=== PATIENT | female | born 1965 ===

== ENCOUNTER 2025-09-21 10:30 | Outpatient (AMB) | payer OTHER, SELFPAY ==
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
--- OUTSIDE RECORDS SUMMARY | 2025-09-21 10:33 | XMS_ITS | Encounter Summary ---
Author Organization [facility] Address [address] [place] [id number] Care Team Providers Care Cupola Hoist Operator Name Role Phone Nadia Gomez Primary Care Provider [phone] Nadia Gomez Unavailable Nadia Gomez Unavailable [phone] Reason for Visit * Reason Onset Date Comments Results 07/24/2025 Encounter Details Date Type Department Care Team (Late st Contact Info) Description 07/24/2025 Results Follow-Up [facility] [address] Rheumatology [address] [place] [id number] Aline Green MD [address] [place] [id number] XR Sacroiliac Joints 3+ VW Social History Tobacco Use Types Packs/Day Years Used Date Smoking Tobacco: Never Assessed Comments Unknown Sex and Gender Information Value Date Recorded Sex Assigned at Female 05/25/2025 2:23 PM EDT Legal Sex Female 2:21 PM EDT Gender Identity Female 05/25/2025 2:23 PM EDT Sexual Orientation Not on file documented as of this encounter Miscellaneous Notes * Telephone Encounter - Marko Currie RN - 07/24/2025 2:25 PM EDT Patient updated and expressed understanding. Advised to contact clinic if any questions or concerns arise, expressed understanding. * Telephone Encounter - Marko Currie RN - 07/24/2025 2:23 PM EDT ----- Message from Aline Green MD sent at 07/24/2025 1:18 PM EDT ----- We can let her know she has a lot of osteoarthritis/ wear and tear seen so far on x-rays. However we will await the ultrasound. thanks ----- Message ----- From: She, Rad Results In Sent: 07/24/2025 1:00 PM EDT To: Aline Green MD * Result Encounter Note - Aline Green MD - 07/24/2025 1:18 PM EDT We can let her know she has a lot of osteoarthritis/ wear and tear seen so far on x-rays. However we will await the ultrasound. thanks documented in this encounter Plan of Treatment Upcoming Encounters Date Type Department Care Team (Latest Contact Info) Description 10/30/2025 12:15 PM EST Office Visit [facility] @ [address] [place] [address] [facility] [address] [address] Aline Green MD [address] [place] [address] [address] [place] [address] In Person with Physician documented as of this encounter Visit Diagnoses Not on filedocumented in this encounter Care Teams Cupola Hoist Operator Relationship Specialty Start Date End Date Nadia Gomez [address] [facility] Nitesh NolanJEFF [phone] PCP - General 05/25/25 Nadia Gomez [address] [place] [phone] PCP - Insurance Assigned PCP 07/27/25 Nadia Gomez [address] [facility] [phone] PCP - Insurance Assigned PCP 07/24/25 07/26/25 documented as of this encounter
--- OUTSIDE RECORDS SUMMARY | 2025-09-21 10:33 | XMS_ITS | Continuity of Care Document ---
Author Organization [place] - [employer] [facility], [facility] Address [address] [facility] [place] [facility] [place] [address] Care Team Providers Care Strip Deburrer Name Role Phone NADIA GOMEZ Primary Care Provider [phone] Assessment No assessment recorded. Plan of Treatment Reminders Order Date Submit Date Provider Last Modified By Organization Details Last Modified Time Details Appointments None record ed. Lab HbA1c (hemog lobin A1c), blood 2024 025 itembase [facility], [address] [place] [address], [address], 5 04:39:29 Referral sleep medici ne referr al - Reason for Referr al: Evalua tion and manage ment of DANIELLE Clinic al Summar y: 59 y/o female patifei murdock presen ts with persis tent daytim e sleepi ness despit e sleepi ng up to 12 hours per night. Report s waking with eye crusti ng and nasal pressu re, likely relate d to nasal obstru ction and possib le worsen ing of DANIELLE. Last sleep study was over three years ago, and art murdock report s progre ssive worsen ing of sympto ms. Screen ing Result s: Epwort h Sleepi ness Scale: 19 (sever e daytim e sleepi ness) STOP-B AN (high risk for DANIELLE) Art murdock is wagner tly engage d in weight manage ment and lifest yle change s. Long-t erm goal is eligib ility for a sleep apnea implan t after furthe r weight loss. ENT has recomm ended nasal valve surger y prior to implan t consid eratio n. Reques miles Evalua tion: Repeat sleep study to assess wagner rubio of DANIELLE Review and heaveni brendation of treatm ent option s 2024 [email or web address] [facility], [address] [place] [address], [address], 13:44:42 Procedures None record ed. Surgeries None record ed. Imaging None record ed. Medication Orders Vitami n D3 50 mcg (2,000 unit) capsul e 2024 ezigbuowenzler [facility], [address], [address], [place], [place], [id number], 14:51:05 metron idazol e 0.75 % topica l cream 2024 ezigbuowenzler [facility], [address], [address], [place], [place], [id number], 12:38:50 erythr omycin 5 mg/gra m (0.5 %) eye ointme nt 2024 ezigbuowenzler [facility], [address], [address], [place], [place], [id number], 12:38:50 Patient TargetsNo targets recorded. Patient InstructionsNo instructions recorded. Reason for Referral Sleep Medicine Referral for Difficulty sleeping Evaluation and management of obstructive sleep apnea (DANIELLE) Reason for Referral: Evaluation and management of OSAClinical Summary:59 y/o female patient presents with persistent daytime sleepiness despite sleeping up to 12 hours per night. Reports waking with eye crusting and nasal pressure, likely related to nasal obstruction and possible worsening of DANIELLE. Last sleep study was over three years ago, and patient reports progressive worsening of symptoms.Screening Results:[place]is Sleepiness Scale: 19 (severe daytime sleepiness)STOP-BAN (high risk for DANIELLE)Patient is currently engaged in weight management and lifestyle changes. Long-term goal is eligibility for a sleep apnea implant after further weight loss. ENT has recommended nasal valve surgery prior to implant consideration.Requested Evaluation:Repeat sleep study to assess current severity of OSAReview and optimization of treatment options Referring Physician: Kaelyn Finley, Family Medicine, Encounter Date: 07/11/2025 Results Created Date Observation Date Name Description Value Unit Range Abnormal Flag Note LastModifiedBy Organization Detail LastModifiedTime 07/06/2007/07/2025 LIPID PANEL , STAND ALESSANDRA cholesterol, total 253 mg/dL <200 high Not Available [facility] [address], [address], 07/07/2025 08:14:33 07/06/2007/07/2025 LIPID PANEL , STAND ALESSANDRA HDL cholesterol 56 mg/dL > or = 50 normal Not Available [facility] [address], [place], [address], 07/07/2025 08:14:33 07/06/2007/07/2025 LIPID PANEL , STAND ALESSANDRA triglyceride s 95 mg/dL <150 normal Not Available [facility] [address], [address], 07/07/2025 08:14:33 07/06/2007/07/2025 LIPID PANEL , STAND ALESSANDRA LDL-choleste rol 176 mg/dL _(anthony c) high Refer ence range : <100 Seamus able range <100 mg/dL for prima ry preve ntion ; <70 mg/dL for patie nts with CHD or diabe tic patie nts with > or = 2 CHD risk facto rs. LDL-C is now calcu lated using the Noemy n-Hop kins lamar pace n, which is a valid ated novel joanie english than the Fried belia equat ion in the estim ation of LDL-C . Noemy thomson SS et al. NERY. 2013; 310(1 9): 2061- 2068 (http ://ed ucati on.Qu estDi Quus. com/f aq/FA Q164) Not Available [facility] [address], [place], [address], 07/07/2025 08:14:33 07/06/2007/07/2025 LIPID PANEL , STAND ALESSANDRA chol/HDLC ratio 4.5 (calc ) <5.0 normal Not Available [facility] [address], [place], [address], 07/07/2025 08:14:33 07/06/2007/07/2025 LIPID PANEL , STAND ALESSANDRA non HDL cholesterol 197 mg/dL _(anthony c) <130 high For patie nts with diabe francisca plus 1 major ASCVD risk facto r, treat ing to a non-H DL-C goal of <100 mg/dL (LDL- C of <70 mg/dL ) is consi dered a thera peuti c optio n. Not Available [facility] [address], [place], [address], 07/07/2025 08:14:33 07/06/2007/07/2025 COMPR EHENS DAISY METAB OLIC PANEL glucose 89 mg/dL 65-99 normal Fasti ng refer ence inter ashley Not Available [facility] [address], [place], [address], 07/07/2025 08:14:34 07/06/2007/07/2025 COMPR EHENS DAISY METAB OLIC PANEL urea nitrogen (BUN) 18 mg/dL 7-25 normal Not Available [facility] [address], [place], [address], 07/07/2025 08:14:34 07/06/2007/07/2025 COMPR EHENS DAISY METAB OLIC PANEL creatinine 0.86 mg/dL 0.50-1 .05 normal Not Available [facility] [address], [place], [address], 07/07/2025 08:14:34 07/06/20 25 07/07/2025 COMPR EHENS DAISY METAB OLIC PANEL eGFR 77 mL/mi n/1.7 3m2 > or = 60 normal Not Available [facility] [address], [place], [address], 07/07/2025 08:14:34 07/06/2007/07/2025 COMPR EHENS DAISY METAB OLIC PANEL BUN/creatini ne ratio SEE NOTE: (calc ) 6-22 Not Repor miles: BUN and Creat inine are withi n refer ence range . Not Available [facility] [address], [place], [address], 07/07/2025 08:14:34 07/06/20 25 07/07/2025 COMPR EHENS DAISY METAB OLIC PANEL sodium 139 mmol/ L 135-14 6 normal Not Available [facility] [address], [place], [address], 07/07/2025 08:14:34 07/06/20 25 07/07/2025 COMPR EHENS DAISY METAB OLIC PANEL potassium 4.7 mmol/ L 3.5-5. 3 normal Not Available [facility] [address], [place], [address], 07/07/2025 08:14:34 07/06/2007/07/2025 COMPR EHENS DAISY METAB OLIC PANEL chloride 105 mmol/ L 98-110 normal Not Available [facility] [address], [place], [address], 07/07/2025 08:14:34 07/06/20 25 07/07/2025 COMPR EHENS DAISY METAB OLIC PANEL carbon dioxide 27 mmol/ L 20-32 normal Not Available [facility] [address] [place], [address], 07/07/2025 08:14:34 07/06/20 25 07/07/2025 COMPR EHENS DAISY METAB OLIC PANEL calcium 9.8 mg/dL 8.6-10 .4 normal Not Available [facility] [address], [place], [address], 07/07/2025 08:14:34 07/06/20 25 07/07/2025 COMPR EHENS DAISY METAB OLIC PANEL protein, total 6.2 g/dL 6.1-8. 1 normal Not Available [facility] [address], [place], [address], 07/07/2025 08:14:34 07/06/20 25 07/07/2025 COMPR EHENS DAISY METAB OLIC PANEL albumin 3.8 g/dL 3.6-5. 1 normal Not Available [facility] [address], [place], [address], 07/07/2025 08:14:34 07/06/2007/07/2025 COMPR EHENS DAISY METAB OLIC PANEL globulin 2.4 g/dL_ (calc ) 1.9-3. 7 normal Not Available [facility] [address], [place], [address], 07/07/2025 08:14:34 07/06/2007/07/2025 COMPR EHENS DAISY METAB OLIC PANEL albumin/glob ulin ratio 1.6 (calc ) 1.0-2. 5 normal Not Available [facility] [address], [place], [address], 07/07/2025 08:14:34 07/06/20 25 07/07/2025 COMPR EHENS DAISY METAB OLIC PANEL bilirubin, total 0.3 mg/dL 0.2-1. 2 normal Not Available [facility] [address], [place], [address], 07/07/2025 08:14:34 07/06/2007/07/2025 COMPR EHENS DAISY METAB OLIC PANEL alkaline phosphatase 84 U/L 37-153 normal Not Available [facility] [address], [place], [address], 07/07/2025 08:14:34 07/06/2007/07/2025 COMPR EHENS DAISY METAB OLIC PANEL AST 17 U/L 10-35 normal Not Available [facility] [address], [place], [address], 07/07/2025 08:14:34 07/06/2007/07/2025 COMPR EHENS DAISY METAB OLIC PANEL ALT 21 U/L 6-29 normal Not Available [facility] [address], [place], [address], 07/07/2025 08:14:34 07/06/2007/07/2025 CBC (INCL UDES DIFF/ PLT) white blood cell count 7.4 thous and/u L 3.8-10 .8 normal Not Available [employer] [facility] [address], [place], [address], 07/07/2025 02:32:49 07/06/2007/07/2025 CBC (INCL UDES DIFF/ PLT) red blood cell count 4.57 alexandru on/uL 3.80-5 .10 normal Not Available [facility] [address], [place], [address], 07/07/2025 02:32:49 07/06/20 25 07/07/2025 CBC (INCL UDES DIFF/ PLT) hemoglobin 13.7 g/dL 11.7-1 5.5 normal Not Available [facility] [address], [place], [address], 07/07/2025 02:32:49 07/06/2007/07/2025 CBC (INCL UDES DIFF/ PLT) hematocrit 44.0 % 35.0-4 5.0 normal Not Available [facility] [address], [place], [address], 07/07/2025 02:32:49 07/06/2007/07/2025 CBC (INCL UDES DIFF/ PLT) MCV 96.3 fL 80.0-1 00.0 normal Not Available [facility] [address], [place], [address], 07/07/2025 02:32:49 07/06/2007/07/2025 CBC (INCL UDES DIFF/ PLT) MCH 30.0 pg 27.0-3 3.0 normal Not Available [facility] [address], [place], [address], 07/07/2025 02:32:49 07/06/2007/07/2025 CBC (INCL UDES DIFF/ PLT) MCHC 31.1 g/dL 32.0-3 6.0 low For adult s, a sligh t decre ase in the calcu lated MCHC value (in the range of 30 to 32 g/dL) is most likel y not clini safia signi ficjer t; sandra er, it shoul d be inter prete d with cauti on in corre latio n with other red cell alisson eters and the patie nt's clini anthony condi tion. Not Available [facility] [address], [place], [address], 07/07/2025 02:32:49 07/06/2007/07/2025 CBC (INCL UDES DIFF/ PLT) RDW 12.2 % 11.0-1 5.0 normal Not Available [facility] [address], [place], [address], 07/07/2025 02:32:49 07/06/2007/07/2025 CBC (INCL UDES DIFF/ PLT) platelet count 310 thous and/u L 140-40 0 normal Not Available [facility] [address], [place], [address], 07/07/2025 02:32:49 07/06/2007/07/2025 CBC (INCL UDES DIFF/ PLT) MPV 9.2 fL 7.5-12 .5 normal Not Available [facility] [address], [place], [address], 07/07/2025 02:32:49 07/06/2007/07/2025 CBC (INCL UDES DIFF/ PLT) absolute neutrophils 4618 cells /uL 1500-7 800 normal Not Available [facility] [address], [place], [address], 07/07/2025 02:32:49 07/06/2007/07/2025 CBC (INCL UDES DIFF/ PLT) absolute lymphocytes 1806 cells /uL 850-39 00 normal Not Available [facility] [address], [place], [address], 07/07/2025 02:32:49 07/06/2007/07/2025 CBC (INCL UDES DIFF/ PLT) absolute monocytes 747 cells /uL 200-95 0 normal Not Available [facility] [address], [place], [address], 07/07/2025 02:32:49 07/06/2007/07/2025 CBC (INCL UDES DIFF/ PLT) absolute eosinophils 170 cells /uL 15-500 normal Not Available [facility] [address], [place], [address], 07/07/2025 02:32:49 07/06/2007/07/2025 CBC (INCL UDES DIFF/ PLT) absolute basophils 59 cells /uL 0-200 normal Not Available [facility] [address], [place], [address], 07/07/2025 02:32:49 07/06/2007/07/2025 CBC (INCL UDES DIFF/ PLT) neutrophils 62.4 % normal Not Available [facility] [address], [place], [address], 07/07/2025 02:32:49 07/06/2007/07/2025 CBC (INCL UDES DIFF/ PLT) lymphocytes 24.4 % normal Not Available [facility] [address], [place], [address], 07/07/2025 02:32:49 07/06/2007/07/2025 CBC (INCL UDES DIFF/ PLT) monocytes 10.1 % normal Not Available [facility] [address], [place], [address], 07/07/2025 02:32:49 07/06/2007/07/2025 CBC (INCL UDES DIFF/ PLT) eosinophils 2.3 % normal Not Available [facility] [address], [place], [address], 07/07/2025 02:32:49 07/06/2007/07/2025 CBC (INCL UDES DIFF/ PLT) basophils 0.8 % normal Not Available [facility] [address], [place], [address], 07/07/2025 02:32:49 07/06/20 07/07/2025 VITAM IN D,25- OH,TO DANIEL,I A vitamin D,25-oh,tota l,ia 21 NG/mL 30-100 low Vitam in D Statu s 25-OH Vitam in D: Defic iency : <20 ng/mL Insuf ficie ncy: 20 - 29 ng/mL Optim al: > or = 30 ng/mL For 25-OH Vitam in D testi ng on patie nts on D2-escobedo pplem entat ion and patie nts for whom quant itati on of D2 and D3 fract ions is requi red, the [facility] Assur eD(TM ) 25-OH VIT D, (D2,D 3), LC/MS /MS is recom effie d: order code 07223 (doretha ents >2yrs ). See Note 1 Note 1 For addit ional infor chavo nava refer to http: //[facility] rebecca [email or web address].[email or web address] stDia gnost ics.c om/fa q/FAQ 199 (This link is being provi ded for infor mazin baig/ educsamson bustamante purpo ses only. ) Not Available [facility] [address], [place], [address], 07/07/2025 07:03:41 Result Notes None recorded. Problems Name Problem SNOMED Code Status Onset Date Resolution Date Notes Provider Name and Address Organization Details Recorded Time Menstrua l migraine 51627038 Completed 10/20/2017 Nadia Gomez MD [address] [place] [address], [address], [employer] 8 11:22:45 Pain of multiple joints 95815218 Active osteoart hritis hips, hand , knees , neck, lower back Nadia Gomez MD [address] [place] [address], [address], [employer] 8 11:21:54 Ptosis of eyelid 45412428 Completed 07/17/2015 Nadia Gomez MD [address] [place] [address], [address], [employer] 5 10:14:50 Candidia sis 94117085 Completed 01/24/2024 DION VALDES DNP [address] [place] [address], [address], [facility] [employer] [facility] 4 12:43:20 Inguinal pain 903754423 Completed 07/17/2015 Nadia Gomez MD [address] [place] [address], [address], [facility] [employer] [facility] 5 10:14:50 Sciatica 73738698 Completed 07/17/2015 Nadia Gomez MD [address] [place] [address], [address], [facility] [employer] [facility] 5 10:14:50 Low back pain 459016473 Completed 07/17/2015 Nadia Gomez MD [address] [place] [address], [address], [facility] [employer] [facility] 5 10:14:50 Eczema 76687306 Active Nadai Gomez MD [address] [place] [address], [address], [facility] [employer] [facility] 5 10:37:26 Atrophic vaginiti s 44847734 Active Nadia Gomez MD [address] [place] [address], [address], [facility] [employer] [facility] 5 13:38:40 Vitamin D deficien cy 43330048 Active Nohemi Ferrara LPN [facility], [facility] [employer] [facility] 5 11:18:50 Sciatica 81616032 Active Nadia Gomez MD [address] [place] [address], [address], [facility] [employer] [facility] 6 13:40:49 Acute sinusiti s 66096678 Completed 06/27/2014 Nadia Gomez MD [address] [place] [address], [address], [facility] [employer] [facility] 4 10:27:44 Seborrhe ic dermatit is 77790385 Completed 07/17/2015 Nadia Gomez MD [address] [place] [address], [address], [facility] [employer] 5 10:14:50 Lumbar sprain 317135459 Completed 01/24/2024 DION VALDES DNP [address] [place] [address], [address], [facility] [employer] 4 12:43:32 Psoriasi s 2714817 Completed 11/20/2013 Nadia Gomez MD [address] [place] [address], [address], [facility] [employer] 4 09:33:50 Nasal polyp Completed 07/17/2015 Nadia Gomez MD [address] [place] [address], [address], [facility] [employer] 5 10:14:50 Asthma 014629750 Active Nadia Gomez MD [address] [place] [address], [address], [facility] [employer] 5 13:38:40 Pain in toe 917318841 Completed 06/27/2014 Nadia Gomez MD [address] [place] [address], [address], [facility] [employer] 4 10:28:01 Knee pain Completed 06/27/2014 Nadia Gomez MD [address] [place] [address], [address], [facility] [employer] 4 10:28:01 Premenst rual tension syndrome 31142938 Completed 10/20/2017 Nadia Gomez MD [address] [place] [address], [address], [facility] [employer] 8 11:23:02 Upper respirat ory infectio n 55707453 Completed 06/27/2014 Nadia Gomez MD [address] [place] [address], [address], [facility] [employer] 4 10:27:44 Overweig ht 135575097 Completed 06/27/2014 Nadia Gomez MD [address] [place] [address], [address], [facility] [employer] 4 10:27:44 Obesity 569080668 Active Nadia Gomez MD [address] [place] [address], [address], [facility] [employer] [facility] 5 13:38:40 Sinusiti s 45420059 Completed 01/24/2024 DION VALDES DNP [address] [place] [address], [address], [facility] [employer] 4 12:43:46 Diarrhea 92296685 Completed 07/17/2015 Nadia Gomez MD [address] [place] [address], [address], [facility] [employer] [facility] 5 10:14:50 Family history of ischemic heart disease 896195735 Active 2023 DION VALDES DNP [address] [place] [address], [address], [facility] [employer] 4 19:12:52 Hypertro phy of nasal turbinat es 45557386 Active 2023 DION VALDES DNP [address] [place] [address], [address], [facility] [employer] 4 19:12:56 Anxiety 40455827 Active 2023 DION VALDES DNP [address] [place] [address], [address], [facility] [employer] [facility] 4 19:27:38 Dizzines s 734129854 Active 2023 DION VALDES DNP [address] [place] [address], [address], [facility] [employer] 4 19:28:30 Nausea 393897706 Active 2023 DION VALDES DNP [address] [place] [address], [address], [facility] [employer] 4 19:28:32 Pain of shoulder region 04286782 Active 2023 DION VALDES DNP [address] [place] [address], [address], [facility] [employer] 4 19:28:34 Tight chest 28450382 Active 2023 DION VALDES DNP [address] [place] [address], [address], [facility] [employer] 4 19:28:36 Pain of right shoulder joint 9291346200 0939817 Active 2023 DION VALDES DNP [address] [place] [address], [address], [facility] [employer] 4 00:10:40 Snoring 21044350 Active 2023 DION VADLES DNP [address] [place] [address], [address] [place] [address], [facility] [employer] 4 00:10:51 Problem Notes None recorded. Procedures Surgical History Date Name Laterality Status Provider Name and Address Organization Details Recorded Time 12/02/19 18 Colonoscopy completed Hermelinda Kirkpatrick CMA [facility] [employer] 12/09/2017 13:27:44 09/28/19 18 EGD completed Nohemi Ferrara LPN [facility] [employer] 10/01/2017 11:41:36 Section completed Nadia Gomez MD [address] [place] [address], [address] [place] [address], [facility] [employer] 11/20/2013 09:34:51 Breast Implants completed Nadia Gomez MD [address] [place] [address], [address] [place] [address], [facility] [employer] 11/20/2013 09:56:55 Imaging Results None recorded. Procedure Notes None recorded. Medical Equipment None Reported. Allergies Allergen ID Allergen Name Allergen Category Reaction Reaction Severity Criticality Documentation Date Start Date Code Code System Note Provider Name and Address Organization Details Recorded Time 90004 penicilli n V Not available Not available Not available Not available 01/24/2015 7984 RxNorm This may not be a true aller gy, May be a non-a llerg ic amox rash. pt. state d she was retes miles last fall and she is not aller gic to any antib iotic (2024) Celia Olivares [facility] [employer] [facility] 5 11:11:07 47576 latex environme nt,medica tion Not available Not available Not available 06/21/2018 20239 91 RxNorm rash Graham Mcbride, [address] [place], [address] , [facility] [employer] [facility] 5 08:13:29 Medications Name Sig Start Date Stop Date Status Note LastModified by Organization Details LastModified Time progester one creme 200 mg/gm 1 gm 1-2x daily one gram external ly 1-2 times daily 60 gram, use for last 2 weeks of cycle 2013 active Not Available Not Available Not Avai lable estriol cream 2mg/gm 30 gm Si gm into vagina qpm apply external ly twice a week as directed 2014 active Not Available Not Available Not Avai lable Prescript ion - Clarifica tion active Not Available Not Available Not Available estriol cream 2mg/gm 30 gm Si gm into vagina qpm apply external ly twice a week as directed 2014 active Not Available Not Available Not Avai lable Prescript ion - Prior Authoriza tion Request 07/30 completed Lalitha APPR[employer] Not Available Not Available Not Available sm eye itch relief 0.025 % soln 05/16 completed Not Available Not Available Not Available Hydromet 5 mg-1.5 mg/5 mL oral solution take 5 millilit ers (1 teaspoon ful) by mouth at bedtime for 10 days 06/21 completed Not Available Not Available Not Available celecoxib 200 mg capsule TAKE 1 CAPSULE BY MOUTH DAILY DIRECTED active sometime s is taking 2 capsules as needed Not Available Not Available Not Available cyclobenz aprine 10 mg tablet Take 1 tablet every day by oral route at bedtime for 30 days. 2015 active Not Available Not Available Not Avai lable fluconazo le 100 mg tablet Take 1 tablet every day by oral route for 1 day. 11/27 completed Not Available Not Available Not Available buspirone 5 mg tablet Take 2 tablets twice a day by oral route for 30 days. 01/07 completed Not Available Not Available Not Available Augmentin 875 mg-125 mg tablet Take 1 tablet twice a day by oral route for 10 days. 12/04 completed Not Available Not Available Not Available nystatin 100,000 unit/mL oral suspensio n Take 5 mL 3 times a day by oral route as needed. 02/17 completed Not Available Not Available Not Available Estring 2 mg (7.5 mcg/24 hour) vaginal ring insert 1 ring vaginall y REMOVE AND REPLACE every 3 months 05/16 completed Not Available Not Available Not Available doxycycli ne hyclate 100 mg capsule Take 2 capsules every day by oral route as directed for 1 day. 05/16 completed Not Available Not Available Not Available triamcino lone acetonide 0.5 % topical cream apply to affected area twice a day 05/19 completed Not Available Not Available Not Available azithromy genaro 250 mg tablet take 2 tablets by mouth today then take 1 tablet DAILY FOR 4 DAYS 09/30 completed Not Available Not Available Not Available fluconazo le 150 mg tablet Take 1 tablet every 72 hours by oral route as directed . 06/28 completed Not Available Not Available Not Available valacyclo vir 1 gram tablet as dir for cold sore 05/16 completed oral herpes Not Available Not Available Not Available clarithro mycin 500 mg tablet Take 1 tablet every 12 hours by oral route for 14 days. 11/23 completed Not Available Not Available Not Available Patanol 0.1 % eye drops Instill 1 drop twice a day by ophthalm ic route. 2013 active Not Available Not Available Not Avai lable hydrocodo ne 5 mg-acetam inophen 325 mg tablet 07/30 completed Not Available Not Available Not Available meloxicam 15 mg tablet TK 1 T PO QD WF 02/17 completed Not Available Not Available Not Available naltrexon e 50 mg tablet Take 1 tablet every day by oral route for 30 days. 11/23 completed Not Available Not Available Not Available phenazopy ridine 200 mg tablet Take 1 tablet 3 times a day by oral route. 06/28 completed Not Available Not Available Not Available metronida zole 0.75 % (37.5 mg/5 gram) vaginal gel Insert 1 applicat orful every day by vaginal route for 5 days. 01/07 completed Not Available Not Available Not Available betametha lisset, augmented 0.05 % topical cream Apply by topical route to scalp twice daily active Not Available Not Available No t Available terconazo le 0.8 % vaginal cream INSERT 1 APPLICAT ORFUL VAGINALL Y AT BEDTIME FOR 3 DAYS 02/17 completed Not Available Not Available Not Available sumatript an 50 mg tablet Take 1 tablet every day by oral route as directed for 10 days. active Not Available Not Available No t Available nystatin 500,000 unit tablet Take 1 tablet 3 times a day by oral route for 30 days. 01/07 completed Not Available Not Available Not Available penicilli n V potassium 500 mg tablet active Not Available Not Available Not Available metronida zole 500 mg tablet TAKE 1 TABLET BY MOUTH EVERY 8 HOURS FOR 5 DAYS 04/24 completed Not Available Not Available Not Available ciproflox acin 250 mg tablet active Not Available Not Available No t Available acyclovir 400 mg tablet 07/30 completed Not Available Not Available Not Available ciproflox acin 500 mg tablet 11/23 completed Not Available Not Available Not Available sulfameth oxazole 800 mg-trimet hoprim 160 mg tablet Take 1 tablet twice a day by oral route as directed for 5 days. 06/28 completed Not Available Not Available Not Available aspirin 81 mg tablet,de layed release Take 1 tablet every day by oral route. 10/20 completed Not Available Not Available Not Available doxycycli ne monohydra te 100 mg tablet Take 2 tablets every day by oral route for 1 day. 2013 active Not Available Not Available Not Avai lable acyclovir 800 mg tablet 04/25 completed Not Available Not Available Not Available Serevent Diskus 50 mcg/dose powder for inhalatio n Inhale 1 puff twice a day by inhalati on route. active Not Available Not Available No t Available oxycodone -acetamin ophen 5 mg-325 mg tablet Take 1 tablet 3 times a day by oral route as needed for 7 days. 06/04 completed Not Available Not Available Not Available prednisol one acetate 1 % eye drops,tyrell pension 10/20 completed Not Available Not Available Not Available hydrocort isone valerate 0.2 % topical ointment apply A THIN LAYER TO THE AFFECTED AREA twice a day 10/20 completed Not Available Not Available Not Available econazole nitrate 1 % topical cream apply to affected area twice a day 05/19 completed Not Available Not Available Not Available cephalexi n 500 mg capsule TAKE 1 CAPSULE BY MOUTH THREE TIMES DAILY FOR 10 DAYS 05/01 completed Not Available Not Available Not Available erythromy genaro 5 mg/gram (0.5 %) eye ointment Apply a 1/2 inch line to the lower eyelids (not in the eye) twice daily for 7 days, active Not Available Not Available No t Available acyclovir 5 % topical ointment APPLY TOPICALL Y TO AFFECTED AREA AT FIRST ONSET OF SYMPTOMS UP TO FIVE TIMES A DAY 04/25 completed Not Available Not Available Not Available dexametha sone 4 mg tablet 11/27 completed Not Available Not Available Not Available lidocaine 5 % topical patch 04/25 completed Not Available Not Available Not Available metronida zole 0.75 % topical cream APPLY A THIN LAYER TO THE AFFECTED AREA(S) BY TOPICAL ROUTE 2 TIMES PER DAY IN THE MORNING AND EVENING active Not Available Not Available No t Available omeprazol e 20 mg capsule,d elayed release take 1 capsule by mouth once daily 03/16 completed Not Available Not Available Not Available diclofena c sodium 75 mg tablet,de layed release Take 1 tablet every day by oral route in the morning for 30 days. 07/30 completed Not Available Not Available Not Available monteluka st 10 mg tablet TAKE 1 TABLET BY MOUTH EVERY DAY 06/28 completed Not Available Not Available Not Available clindamyc in 2 % vaginal cream insert 1 applicat orful vaginall y at bedtime for 7 days active Not Available Not Available No t Available mupirocin 2 % topical ointment APPLY TOPICALL Y TO AFFECTED AREA(S) THREE TIMES A DAY FOR 5 DAYS 11/27 completed Not Available Not Available Not Available ergocalci ferol (vitamin D2) 1,250 mcg (50,000 unit) capsule TAKE 1 CAPSULE BY MOUTH EVERY WEEK active Not Available Not Available No t Available Transderm -Scop 1 mg over 3 days transderm al patch active Not Available Not Available Not Available azelastin e 137 mcg (0.1 %) nasal spray 10/20 completed Not Available Not Available Not Available diazepam 10 mg tablet 11/27 completed Not Available Not Available Not Available epinephri ne 0.3 mg/0.3 mL injection , auto-inje ctor 07/30 completed Not Available Not Available Not Available fluticaso ne 100 mcg-salme terol 50 mcg/dose blistr powdr for inhalatio n INHALE 1 DOSE BY MOUTH TWICE A DAY DIRECTED active Not Available Not Available No t Available estradiol 0.01% (0.1 mg/gram) vaginal cream Insert 1 applicat orful 3 times a week by vaginal route as directed for 90 days. active Not Available Not Available No t Available methylpre dnisolone 4 mg tablets in a dose pack take as directed on pack 10/20 completed Not Available Not Available Not Available clobetaso l 0.05 % scalp solution active Provider signed. Not Available Not Available Not Available fluticaso ne propionat e 50 mcg/actua tion nasal spray,tyrell pension instill 2 sprays into each nostril once daily 02/17 completed Not Available Not Available Not Available Diflucan 200 mg tablet Take 1 tablet every day by oral route. 04/24 completed Not Available Not Available Not Available doxycycli ne hyclate 100 mg tablet take 1 tablet by mouth twice a day for 7 days 08/05 completed Not Available Not Available Not Available progester one micronize d 100 mg capsule TAKE 1 CAPSULE BY MOUTH DAILY 2024 active Not Available Not Available Not Avai lable amoxicill in 500 mg-potass ium clavulana te 125 mg tablet Take 1 tablet every 12 hours by oral route for 10 days. 06/28 completed Not Available Not Available Not Available tobramyci n 0.3 %-dexamet hasone 0.1 % eye drops,tyrell pension 04/24 completed Not Available Not Available Not Available calcipotr iene 0.005 % topical ointment Apply by topical route. to scalp twice daily active Not Available Not Available No t Available estradiol 0.0375 mg/24 hr weekly transderm al patch APPLY 1 PATCH TOPICALL Y TO THE SKIN EVERY WEEK 01/29 completed Not Available Not Available Not Available nitrofura ntoin monohydra te/macroc rystals 100 mg capsule TAKE ONE CAPSULE BY MOUTH TWICE A DAY FOR 7 DAYS 10/02 /2025 completed Not Available Not Available Not Available chlorhexi dine gluconate 0.12 % mouthwash 06/28 completed Not Available Not Available Not Available ProAir HFA 90 mcg/actua tion aerosol inhaler inhale 2 puffs by mouth every 4 hours if needed active Not Available Not Available No t Available Xopenex HFA 45 mcg/actua tion aerosol inhaler Inhale 2 puffs every 6 hours by inhalati on route as needed for 30 days. active Not Available Not Available No t Available peg 3350-elec trolytes 236 gram-22.7 4 gram-6.74 gram-5.86 gram solution DIRECTED . 01/07 completed Not Available Not Available Not Available diclofena c 1 % topical gel APPLY 2 GRAMS TO THE AFFECTED AREA(S) BY TOPICAL ROUTE 4 TIMES PER DAY 04/25 completed Not Available Not Available Not Available Eye Itch Relief 0.025 % (0.035 %) drops PLACE 1 DROP INTO AFFECTED EYE(S) TWICE PER DAY NEEDED 05/19 completed Not Available Not Available Not Available estradiol 10 mcg vaginal tablet insert 1 tablet vaginall y two times a week active Not Available Not Available No t Available Zyrtec 10 mg capsule Take 1 capsule every day by oral route. active Not Available Not Available No t Available Suprep Bowel Prep Kit 17.5 gram-3.13 gram-1.6 gram oral solution 06/21 completed Not Available Not Available Not Available Vitamin D3 50 mcg (2,000 unit) capsule Take 1 capsule every day by oral route with meal(s) for 30 days, for Vitamin D deficien cy. 2024 active Not Available Not Available Not Avai lable Xhance 93 mcg/actua tion breath activated aerosol SPRAY 2 SPRAY INTO BOTH NOSTRILS TWICE A DAY active Not Available Not Available No t Available Vitals Date Recorded Body height Heart rate Oxygen saturation Systolic And Diastolic Provider Name and Address Organization Details Last Updated DateTime 07/11/2025 173.36 cm 73 /min 97 % 142/89 mm[Hg] Janet Olivares [place] - [employer] 07/11/2025 11:13:43 Social History Question Answer Notes LastModified by Organizat ion Details LastModified Time Tobacco Smoking Status Never Smoker Hermelinda Kirkpatrick CMA null, [place] - [employer] [facility] 11/14/2012 08:55:37 Do You Have An Advance Directive? No Information not available 11/20/2013 What Is Your Level Of Caffeine Consumption? Moderate 1.5 Cups Of Coffee A Day (2024) [email or web address] Information not available 06/28/2025 How Much Tobacco Do You Chew? None Information not available 11/14/2012 In The 14 Days Before Symptom Onset, Have You Had Close Contact With A Laboratory-confir med COVID-19 While That Case Was Ill? No Information not available 01/07/2023 In The 14 Days Before Symptom Onset, Have You Had Close Contact With A Person Who Is Under Investigation For COVID-19 While That Person Was Ill? No Information not available 01/07/2023 Have You Been To An Area Known To Be High Risk For COVID-19? No Information not available 09/30/2020 What Type Of Diet Are You Following? SPECIFIC Minimal Dairy (2024) [email or web address] Information not available 06/28/2025 Which Illicit Or Recreational Drugs Have You Used? No Information not available 11/14/2012 What Is The Highest Grade Or Level Of School You Have Completed Or The Highest Degree You Have Received? [id number] [email or web address] Information not available 06/28/2025 Hard Of Hearing Or Deaf In One Or Both Ears? No Information not available 11/20/2013 Legally Blind In One Or Both Eyes? No Information no t available 11/20/2013 Foreign Travel Yes Informatio n not available 02/26/2016 Do You Have A Family History Of Mental Health Or Substance Abuse? Yes Information not available 11/20/2013 Language Mauritian Information no t available 02/26/2016 Country Of Origin [facility] Informa tion not available 02/26/2016 Dietary Lactose Free Information not available 02/26/2016 Marital Status [email or web address] Informati on not available 10/20/2018 What Was The Date Of Your Most Recent Tobacco Screening? 07/11/2025 [email or web address] Information not available 07/11/2025 How Many Children Do You Have? 2 Information not available 11/14/2012 Obese No Information no t available 02/26/2016 Overweight Yes Information no t available 02/26/2016 Do You Have Any Pets? Yes Information not available 01/07/2023 What Is Your Relationship Status? Lives With Someone (2024) [email or web address] Information not available 06/28/2025 Do You Use Your Seat Belt Or Car Seat Routinely? Yes Information not available 01/07/2023 Seat Belts Used Routinely Yes Information not available 11/14/2012 Smoke Alarm In Home Yes Information not available 11/14/2012 Do You Have Smoke And Carbon Monoxide Detectors In Your Home? Yes Information not available 01/07/2023 At What Age Did You Start Smoking Tobacco? 0 Information not available 02/26/2016 Are You Passively Exposed To Smoke? No Information no t available 02/26/2016 How Much Tobacco Do You Smoke? No Information not available 02/26/2016 General Stress Level Low [email or web address] Information not available 11/20/2013 Do You Use Sunscreen Routinely? Yes Information not available 11/14/2012 How Many Years Have You Smoked Tobacco? 0 Information not available 02/26/2016 Are You Currently In School? No [email or web address] Information not available 06/28/2025 Sex: Female Functional Status Question Answer Note LastModified by Organizat ion Details LastModified Time Do you use any illicit or recreational drugs? No [email or web address] Information not available 01/24/2024 What is your level of alcohol consumption? Occasional on special occastions (2024) [email or web address] Information not available 06/28/2025 Do you or have you ever used smokeless tobacco? Never used smokeless tobacco Information not available 09/08/2019 Are you currently employed? No [email or web address] Information not available 06/28/2025 What is your occupation? retired [email or web address] Information not available 06/28/2025 Do you or have you ever used e-cigarettes or vape? Never used electronic cigarettes Information not available 09/08/2019 What is your exercise level? Moderate speed walk, hike, lifts weights, stretching (2024) [email or web address] Information not available 06/28/2025 Mental Status None recorded. Family History Relationship Description Onset Age of this Age Resolved Age Notes LastModified by Organization Details LastModified Time Father Hypertensive disorder ankylo sing nusrat jeffries ssalice Not available 02/26/2016 16:55:59 Brother Depressive disorder [email or web address] Not available 2015 16:55:59 Paternal Grandmother Neoplasm of brain ssalice Not available 2015 16:55:59 Medical History Condition Response Asthma, COPD, Breathing or Lung Disorder N Anxiety/Depression N Gout N Cardiac History, Heart [place], [place] N Eye or Vision Problems N Gynecologic problems N Hernia N Thyroid Problems N GI Problems N Developmental or Behavioral Disorders N Blood Pressure High or Low N Skin Problems N Breast Problem N Food or Environmental Allergies Y Diabetes N Bladder,Kidney Problems or Recurrent UTI 's N Muscle, Joint, or Bone Problems N Bleeding Disorder N Arthritis N Cancer (of any kind) N Defects or Inherited Diseases N Prostate issues, ED or Sexual Problem N Insomnia N Cholesterol High or Low N Chronic Pain N Stroke N Headache N Dizziness or Fainting N Seizures or Convulsions N Ear Nose & Throat (ENT) Problems N Neuropathy N Osteoporosis N Liver Disease or Hepatitis N Gynecological History Statement/Question Response Menses Monthly Y Withdrawal Flow Moderate Obstetrics History GPAL:G 2 P 2 0 0 0 Type Value Full Term 2 Total 2 Immunizations Vaccine Type Date Status Note Provider Nam e and Address Organization Details Recorded Time COVID-19, mRNA, LNP-S, PF, 30 mcg/0.3 mL dose 1 completed Tyesha Azar RMA null, [place] [facility] 2023 09:40:11 COVID-19, mRNA, LNP-S, PF, 30 mcg/0.3 mL dose 1 completed Tyeshasheryl Rousseauain, RMA null, [place] [facility] 2023 09:40:11 Td (adult) 5 completed Not Available [facility] 05/16/2020 15:08:16 Influenza, split virus, trivalent, preservative 5 completed Not Available [facility] 10/14/2019 02:38:47 COVID-19, mRNA, LNP-S, PF, 30 mcg/0.3 mL dose 1 completed Tyesha Azar RMA null, [place] [facility] 2023 09:40:11 COVID-19, mRNA, LNP-S, PF, 30 mcg/0.3 mL dose 1 completed PAMELLA [facility], JEFF - [facility] 2023 09:40:11 COVID-19, mRNA, LNP-S, PF, alonzo-sucrose, 30 mcg/0.3 mL 4 completed Not Available [facility] 07/11/2025 10:55:35 zoster recombinant 5 completed Not Available [facility] 07/11/2025 10:55:35 COVID-19, mRNA, LNP-S, bivalent, PF, 30 mcg/0.3 mL dose 2 completed Not Available [facility] 07/11/2025 10:55:35 Influenza, split virus, quadrivalent, PF 3 completed Not Available [facility] 07/11/2025 10:55:35 COVID-19, mRNA, LNP-S, PF, 50 mcg/0.5 mL 3 completed Not Available [facility] 07/11/2025 10:55:35 Past Encounters Encounter ID Performer Location Encounter Start Date Encounter Closed Date Diagnosis/Indication Diagnosis SNOMED-CT Code Diagnosis ICD10 Code Diagnosis IMO Codes Diagnosis Note [id number] ANGELICA GOTTI Eliazar [address] [address] 06/28/2025 08:04:09 06/28/2025 09:24:14 Adult health examination 823660664 Z00.00 Assessment Annual adult physical exam no acute findings.P [facility] health maintenanc e and screening up to date.Obesi ty (BMI 35.3).Hist ory of diverticul osis, stable.Imm unizations partially up to date; pending COVID-19 booster and Shingrix verificati on.PlanEnc ourage continued healthy lifestyle, balanced nutrition, and regular exercise.C ontinue annual follow-up and age-approp riate screenings .CBC, CMP, lipid panel, and vit D ordered.He alth maintenanc e:Eye exam January 2025Dental exam March 2025Pap smear + HPV February 2024 (normal)Ma mmogram scheduled for July5Colono scopy completed 12/30/2021 , several diverticul a, repeat in 5 years (2026)Immu nizations: Declined flu and Tdap today; will receive COVID-19 at [facility]; will verify completion of Shingrix series.Con sandraue routine annual follow-up and age-approp riate screenings . Requires d iphtheria, tetanus and pertussis vaccination 887551007 Z23 594404 As outlined in adult annual examinatio n Requires v aricella vaccination 374566161 Z23 342129 As outlined in adult annual examinatio n Vitamin D deficiency 347 77102 E55.9 17831 Assessment Patient s last Vitamin D level (2022) was low at 34 ng/mL. Currently taking Vitamin D supplement ation.Plan Order repeat Vitamin D level.Adju st Vitamin D supplement ation based on results.Re assess at follow-up to ensure adequacy of therapy. Arthritis 4690637 M19.90 68302 Assessment Right-side d Arthritis and Mobility Issues -- Patient reports chronic right-side d pain and mobility limitation s with constant swelling in the right foot due to a Johnson s cyst behind the knee, requiring periodic aspiration . Reports difficulty lifting the right leg, poor balance, and trouble with dressing and walking. Symptoms have progressiv gordo worsened over the past 10 years, with recent decline. History of back surgery 10 years ago for spinal cysts. Reports tingling and numbness in the right foot after prolonged standing.P lanRefer to physical therapy for balance, gait, and mobility training.C onsider MRI of the lumbar spine to evaluate for recurrent or residual pathology. Follow up to review physical therapy progress and reassess need for further imaging or interventi ons. Influenza vaccination declined [id number] Z28.21 [id number] As outlined in adult annual examinatio n SARS-CoV-2 vaccination declined 0469509506 Z28.21 [id number] As outlined in adult annual examinatio n Synovial p opliteal cyst of right knee 8226044637 M71.21 [id number] Assessment Mild right foot swelling likely secondary to Johnson s cystPlanR ecommend rest, elevation, and compressio n as tolerated. Monitor for pain, redness, or increased swelling.F ollow up if symptoms worsen or persist. Obese class II [id number] 1 53765 E66.812 [id number] Assessment Obesity (BMI 35.3)PlanC ounsel on healthy diet, portion control, and regular physical activity.E ncourage gradual, sustainabl e weight loss. Elevated blood-pressure reading without diagnosis of hypertension 276070200 R03.0 579482 Assessment Patient s blood pressure is slightly elevated at this visit (132/82). No prior history of hypertensi on. Patient reports adherence to lifestyle modificati ons, including diet and exercise.P lanContinu e home and office blood pressure monitoring .Reinforce ongoing lifestyle modificati ons: balanced diet, regular exercise, weight management .Reassess blood pressure at next routine visit or sooner if readings increase. [id number] ANGELICA GOTTI Eliazar [address] [address] 07/11/2025 10:54:25 07/11/2025 12:01:46 Difficulty sleeping 629635873 G47.9 [id number] Assessment Possible Obstructiv e Sleep Apnea (DANIELLE) --- Persistent daytime sleepiness despite adequate hours of sleep and prior DANIELLE diagnosis. Last sleep study >3 years ago; symptoms appear worsened.N yobani obstructio n and weight remain contributi ng factors.Tn reening Results:Ep worth Sleepiness Scale: 19 (severe daytime sleepiness )STOP-BANG : 6 (high risk for DANIELLE)PlanRe jorge for repeat sleep study, lab polysomnog yoni to reassess DANIELLE severity.C ontinue lifestyle modificati ons and weight management program.Re inforce sleep hygiene measures -- regular sleep schedule, avoid caffeine/a lcohol near bedtime.Mo nitor for excessive daytime sleepiness affecting safety (e.g., driving). Diabetes m ellitus screening 180440258 Z13.1 [id number] Rosacea 502675756 L71.9 818 Assessment Rosacea (facial, mild; possible ocular component) --- Central facial erythema triggered by spicy foods and stress; mild periorbita l dryness and crusting.N o pustules or papules noted on exam.PlanO rder metronidaz ole 0.75% cream, apply thin layer to affected facial areas twice daily.Kodak mmend daily use rather than intermitte nt applicatio n for optimal control.Ap ply gentle skin care -- mild cleanser, fragrance- free moisturize r, daily sunscreen. Ocular rosacea 005168994 L71.8 806613 Assessment Ocular Rosacea Chronic inflammato ry condition affecting the eyelids and ocular surface, presenting with dryness, irritation , and intermitte nt redness.Pl anApply warm compresses to eyelids and perform eyelid hygiene (lid scrubs) twice daily.If symptoms persist, start erythromyc in ophthalmic ointment, apply a thin layer to eyelid margins nightly.Re jorge to ophthalmol ogy for evaluation if redness, pain, or vision changes occur.Avoi d known triggers, including spicy foods, alcohol, heat, and emotional stress.Selvin nforce use of artificial tears as needed for dryness and comfort. Vitamin D deficiency [phone] E55.9 95353 Assessment Vitamin D Deficiency (25-hydrox yvitamin D = 21 ng/mL) Mild deficiency likely contributi ng to fatigue and seasonal affective symptoms.P lanStart vitamin D3 2,000 IU daily with food.Encou rage sunlight exposure and vitamin D r ich diet.Reche ck level in 3 months. Health Concerns Section Related Observation LastModified by Organization Detai ls LastModified Time None Recorded Concern Status LastModified by Organization Details LastModified Time None Recorded Payers Encounter Date Sequence Insurance Name Policy Number Policy Chambers Covered Member ID Chambers Member ID Guarantor Name 07/11/[address] [place] [address] [id number] Antonette Estrada Anabella [id number] Antonette Kyle Notes Date Note Type Note Provider Name and Address Organization Details Recorded Time 07/11/2025 text/html ROS as noted in the HPI Patient presents for follow-up regarding sleep apnea and rosacea management.Sleep Apnea:The patient reports persistent daytime sleepiness despite sleeping up to 12 hours per night. She denies falling asleep while driving but frequently dozes off while reading. She awakens with crusty eyes and a sensation of pressure, which she believes may relate to nasal obstruction and sleep apnea. She describes feeling t ired all the time, noting a contrast between her naturally high energy and the fatigue associated with her condition. Her last sleep study was over three years ago, and she believes her symptoms have progressively worsened since then. She has recently implemented lifestyle changes to support weight management and overall health, reporting greater consistency and motivation than in the past. Her long-term goal is to obtain a sleep apnea implant, though she must achieve further weight loss before becoming eligible. Her ENT specialist advised that nasal valve surgery may be necessary prior to implantation, with a potential timeline of about one year. Rosacea:The patient has a known history of facial rosacea, presenting with central facial redness triggered by spicy foods and stress. She also reports morning eye crusting, dryness, and burning. She uses metronidazole cream intermittently as needed. Additional Information:She has a history of seasonal affective disorder (SAD) that improves with an 8-week course of vitamin D supplementation. She continues to take vitamin D regularly. 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 KAELYN FINLEY, PRIVATE WEALTH ADVISOR [address] [place], [id number], [facility] - [employer] [facility] 07/11/2025 16:26:20 OBGyn Episode No OBEpisode recorded.
--- OUTSIDE RECORDS SUMMARY | 2025-09-21 10:33 | XMS_ITS | Clinical Summary ---
Author Organization [facility] Address [address] [place] [address] Care Team Providers Care Sales Counselor Name Role Phone Nadia Gomez Primary Care Provider [phone] Nadia Gomez Unavailable [phone] Allergies Active Allergy Reactions Criticality Noted Date Comments Latex Unknown 07/24/2025 latex Medications progesterone (PROMETRIUM) 100 MG capsule Take 1 capsule (100 mg total) by mouth in the morning. Active celecoxib (CeleBREX) 200 MG capsule TAKE 1 CAPSULE BY MOUTH DAILY DIRECTED Active estradioL (CLIMARA) 0.05 mg/24 hr patch 07/20/2025 Acti ve TURMERIC ORAL Take by mouth. Active cyanocobalamin, vitamin B-12, (VITAMIN B-12 ORAL) Take by mouth. Active cetirizine HCl/pseudoephed rine (ZYRTEC-D ORAL) Take by mouth. Active ZINC ORAL Take by mouth. Active Encounters Date Type Department Care Team Description 09/10/2025 10:07 AM EST - 09/10/2025 11:59 PM EST Hospital Encounter [facility] [address] [place] [id number] Aline Green MD Polyarthralgia Discharge Disposition: Home or Self Care 07/24/2025 1:00 PM EDT Lab [facility] [address] [place] [id number] Aline Green MD Polyarthralgia 07/24/2025 12:01 PM EDT - 07/24/2025 11:59 PM EDT Hospital Encounter [facility] [address] [place] [id number] Aline Green MD Polyarthralgia Discharge Disposition: Home or Self Care 07/24/2025 12:01 PM EDT - 07/24/2025 11:59 PM EDT Hospital Encounter [facility] [address] [place] [id number] Aline Green MD Polyarthralgia Discharge Disposition: Home or Self Care 07/24/2025 12:01 PM EDT - 07/24/2025 11:59 PM EDT Hospital Encounter [facility] [address] [place] [id number] Aline Green MD Polyarthralgia Discharge Disposition: Home or Self Care 07/24/2025 12:00 PM EDT Hospital Encounter [facility] [address] [place] [id number] Aline Green MD Polyarthralgia Discharge Disposition: Home or Self Care 07/24/2025 11:30 AM EDT Office Visit [facility] @ [address] [place] [address] Rheumatology at [address] [facility] [place] [address] Aline Green MD Polyarthralgia (Primary Dx) 07/24/2025 Results Follow-Up [facility] [address] Rheumatology [address] [place] [id number] Aline Green MD XR Sacroiliac Joints 3+ VW from Last 3 Months Social History Tobacco Use Types Packs/Day Years Used Date Smoking Tobacco: Never Assessed Comments Unknown Sex and Gender Information Value Date Recorded Sex Assigned at Female 05/25/2025 2:23 PM EDT Legal Sex Female 2:21 PM EDT Gender Identity Female 05/25/2025 2:23 PM EDT Sexual Orientation Not on file Last Filed Vital Signs Vital Sign Reading Time Taken Comments Blood Pressure 111/74 07/24/2025 11:18 AM EDT Pulse 79 07/24/2025 11:18 AM EDT Temperature - - Respiratory Rate - - Oxygen Saturation 98% 07/24/2025 11:18 AM EDT Inhaled Oxygen Concentration - - Weight 107 kg (235 lb) 07/24/2025 11:18 AM EDT Height - - Body Mass Index - - Plan of Treatment Upcoming Encounters Date Type Department Care Team (Latest Contact Info) Description 10/30/2025 12:15 PM EST Office Visit [facility] @ [address] [place] [address] [facility] at [address] [address] Aline Green MD [address] [place] [address] [address] [place] [address] In Person with Physician Health Maintenance Due Date Last Done Comments Lipid Panel 1964 Depression Screening 1976 Hepatitis C Screening 1982 Pap Smear 1985 Cervical Cancer Screening 1994 HPV/Cotest 1994 Breast Cancer Screening 2004 CT Colonography 2009 Colonoscopy 2009 Colorectal Cancer Screening 2009 FIT 2009 FOBT 2009 Multitarget Stool DNA (Cologuard) 2009 Sigmoidoscopy 2009 Pneumococcal Vaccine: 50+ Years (1 of 1 - PCV) 2014 DTaP,Tdap,and Td Vaccines (2 - Tdap) 01/25/2025 01/25/2015 Zoster Vaccine (2 of 2) 02/05/2025 12/11/2024 COVID-19 Vaccine ( season) 2025 07/18/2024, 07/15/2023, 06/15/2022, Additional history exists Influenza Vaccine (#1) 2025 07/30/2023, 2014 Blood Pressure 07/24/2026 07/24/2025 Meningococcal B Vaccines Aged Out No longer eligible based on patient's age to complete this topic Meningococcal Vaccines Aged Out No lo nger eligible based on patient's age to complete this topic Procedures Procedure Name Priority Date/Time Associated Diagnosis Comments US EXTREMITY ORTHO RA COMPLETE RIGHT Routine 09/10/2025 10:39 AM EST Polyarthralgia RHEUMATOID BATTERY WITH CCP Routine 07/24/2025 12:55 PM EDT Polyarthralgia HLA-B27 ANTIGEN Routine 07/24/2025 12:55 PM EDT Polyarthralgia C-REACTIVE PROTEIN Routine 07/24/2025 12 :55 PM EDT Polyarthralgia XR HAND 3 VW BILATERAL Routine 07/24/2025 12:35 PM EDT Polyarthralgia XR HIP PAIN PROTOCOL BILATERAL Routine 07/24/2025 12:34 PM EDT Polyarthralgia XR SACROILIAC JOINTS 3+ VW Routine 07/24/2025 12:34 PM EDT Polyarthralgia XR FOOT 3 VW BILATERAL Routine 07/24/2025 12:34 PM EDT Polyarthralgia from Last 3 Months Results * US Extremity Ortho RA Complete Right (09/10/2025 10:39 AM EST) Anatomical Region Laterality Modality Right Ultrasound 09/10/2025 2:21 PM EST Impressions 09/10/2025 2:17 PM EST 1. No evidence of synovitis or tenosynovitis of the visualized joints in the forefoot. 2. Degenerative changes of the 1st MTP joint. Narrative 09/10/2025 2:17 PM EST EXAM DESCRIPTION: US EXTREMITY ORTHO RA COMPLETE RIGHT TECHNIQUE: Complete musculoskeletal ultrasound performed of the foot. COMPARISON: XR FOOT 3+ VW BILATERAL, ACC: [id number], dated 2025-07-24 12:19:21 INDICATION: R foot check for active inflammation FINDINGS: FOOT: Metatarsophalangeal Joints (1st, 2nd, 5th): No significant synovial thickening or hyperemia. Small fluid in the 2nd MTP joint.. No erosions identified, though ultrasound is not the optimal modality. Evidence of degenerative changes, most pronounced at the 1st MTP joint. Tendons: Visualized extensor tendons are unremarkable. Soft Tissues: Visualized adjacent soft tissues are unremarkable. Procedure Note Jigar Beverly MD - 09/10/2025 EXAM DESCRIPTION: US EXTREMITY ORTHO RA COMPLETE RIGHT TECHNIQUE: Complete musculoskeletal ultrasound performed of the foot. COMPARISON: XR FOOT 3+ VW BILATERAL, ACC: [id number], dated 2025-07-24 12:19:21 INDICATION: R foot check for active inflammation FINDINGS: FOOT: Metatarsophalangeal Joints (1st, 2nd, 5th): No significant synovialthickening or hyperemia. Small fluid in the 2nd MTP joint.. No erosionsidentified, though ultrasound is not the optimal modality. Evidence ofdegenerative changes, most pronounced at the 1st MTP joint. Tendons: Visualized extensor tendons are unremarkable. Soft Tissues: Visualized adjacent soft tissues are unremarkable. IMPRESSION: 1. No evidence of synovitis or tenosynovitis of the visualized joints inthe forefoot. 2. Degenerative changes of the 1st MTP joint. Aline Green MD G US ORDERABLES Final Result * Rheumatoid Battery with CCP (07/24/2025 12:55 PM EDT) [facility] Rheumatoid Factor <35 <35 IU/mL 025 11:25 AM EDT [facility] Cyclic Citrullinated Peptide, IgG <0.5 <3 U/mL 07/25/2025 11:25 AM EDT [facility] Blood PERIPHERAL BLOOD SPECIMEN / Unknown Venipuncture / Unknown 07/24/2025 12:55 PM EDT 07/24/2025 1:11 PM EDT Aline Green MD LAB BLOOD [place] [address] * HLA-B27 Antigen (07/24/2025 12:55 PM EDT) Pathologist [facility] HLA B-27 Antigen Negative Negative 07/25/2025 12:11 PM EDT [facility] Blood PERIPHERAL BLOOD SPECIMEN / Unknown Venipuncture / Unknown 07/24/2025 12:55 PM EDT 07/24/2025 1:11 PM EDT Aline Green MD LAB BLOOD ORDERABLES Final Resul t [address] [address], [place] * C-Reactive Protein (07/24/2025 12:55 PM EDT) C-Reactive Protein (CRP) 3.9 <5.0 mg/L cuaQea [id number] 07/24/2025 4:40 PM EDT [facility] Blood PERIPHERAL BLOOD SPECIMEN / Unknown Venipuncture / Unknown 07/24/2025 12:55 PM EDT 07/24/2025 1:10 PM EDT Aline Green MD LAB BLOOD ORDERABLES Final Resul t Performing Organization Address City/[facility]/ZIP Co de Phone Number [address] [address] * XR Hand 3+ VW Bilateral (07/24/2025 12:35 PM EDT) Anatomical Region Laterality Modality Hand Bilateral Digital Radiogra phy 07/24/2025 1:04 PM EDT Impressions 07/24/2025 1:01 PM EDT Mild osteoarthritis. No radiographic-specific evidence of inflammatory arthropathy. Narrative 07/24/2025 1:01 PM EDT EXAM DESCRIPTION: Hands both-3 views each TECHNIQUE: PA, oblique and lateral both hands. Examination was performed on 07/24/2025 12:35 pm COMPARISON: No Comparison. INDICATION: Polyarthralgia. Check for inflammatory arthritis. FINDINGS: Mild narrowing of bilateral radiocarpal joints. Mild narrowing/osteoarthritic changes of bilateral triscaphe joints, right greater than left, with mild right marginal osteophytic lipping. Mild narrowing and marginal osteophytic lipping/osteoarthritic changes of bilateral 1st CMC joints, right greater than left. Minimal narrowing of bilateral 1st MCP joints. Cystic changes in the radial aspect of the head of the right 3rd metacarpal, likely intraosseous ganglion cyst. No discrete erosions. Mild osteoarthritic changes of the distal greater than proximal interphalangeal joints, most pronounced in bilateral 2nd greater than 3rd distal interphalangeal joints. No focal or diffuse soft tissue swelling. No soft tissue calcifications. Procedure Note Hardik Posada MD - 07/24/2025 EXAM DESCRIPTION: Hands both-3 views each TECHNIQUE: PA, oblique and lateral both hands. Examination was performed on 07/24/2025 12:35 pm COMPARISON: No Comparison. INDICATION: Polyarthralgia. Check for inflammatory arthritis. FINDINGS: Mild narrowing of bilateral radiocarpal joints. Mild narrowing/osteoarthritic changes of bilateral triscaphe joints, rightgreater than left, with mild right marginal osteophytic lipping. Mild narrowing and marginal osteophytic lipping/osteoarthritic changes ofbilateral 1st CMC joints, right greater than left. Minimal narrowing of bilateral 1st MCP joints. Cystic changes in the radial aspect of the head of the right 3rdmetacarpal, likely intraosseous ganglion cyst. No discrete erosions. Mild osteoarthritic changes of the distal greater than proximalinterphalangeal joints, most pronounced in bilateral 2nd greater than 3rddistal interphalangeal joints. No focal or diffuse soft tissue swelling. No soft tissue calcifications. IMPRESSION: Mild osteoarthritis. No radiographic-specific evidence of inflammatoryarthropathy. Aline Green MD IMG DIAGNOSTIC IMAGING ORDERABLE S Final Result * XR Hip Pain Protocol Bilateral (07/24/2025 12:34 PM EDT) Anatomical Region Laterality Modality Hip Bilateral Digital Radiogra phy 07/24/2025 1:00 PM EDT Impressions 07/24/2025 12:56 PM EDT 1. Osteoarthritis of bilateral hips, as described above. Proliferative and sclerotic changes are most pronounced in the right acetabulum. 2. Morphologic changes may predispose the patient to right greater than left global pincer type femoroacetabular impingement. 3. Morphologic changes that may predispose the patient to minimal bilateral cam type femoroacetabular impingement. 4. No radiographic evidence of sacroiliitis. Mild osteoarthritis of bilateral SI joints. 5. Facet arthropathy at the lumbosacral junction, more pronounced on the right. Other findings as above. Narrative 07/24/2025 12:56 PM EDT EXAM DESCRIPTION: Hip pain protocol-bilateral. Sacroiliac joints 3+ views. TECHNIQUE: VIEW: AP pelvis with lateral of right and left hips. Three views of the sacroiliac joints. Examination performed on 07/24/2025 12:34 pm COMPARISON: No Comparison. INDICATION: Polyarthralgia. Check for inflammatory arthritis. FINDINGS: Mild narrowing of bilateral hip joints. At least moderate proliferative and sclerotic changes/marginal osteophytosis involving right superolateral greater than inferomedial acetabulum. Mild marginal osteophytosis of the inferomedial aspect of bilateral femoral heads. Small focus of ossification adjacent to the superolateral aspect of the right hip joint, consistent chronically fractured osteophytes/intra- articular osseous body. Global over coverage of bilateral femoral heads by posterior acetabular wall, right considerably greater than left, may predispose the patient to pincer type femoroacetabular impingement. Mild straightening of the anterior superior aspect of bilateral femoral head-neck junctions may predispose the patient to minimal cam type femoroacetabular impingement. No discrete cam type dysplastic osseous bump is identified. Unremarkable appearance of the pubic symphysis. Mild osteoarthritic changes of bilateral SI joints. No radiographic findings to suggest sacroiliitis. Proliferative changes/enthesopathy of the superolateral aspect of the left greater trochanter. Facet arthropathy at the lumbosacral junction, more pronounced on the right. Surgical clips in the pelvis. Pelvic phleboliths. Otherwise unremarkable soft tissues. Procedure Note Hardik Posada MD - 07/24/2025 EXAM DESCRIPTION: Hip pain protocol-bilateral. Sacroiliac joints 3+ views. TECHNIQUE: VIEW: AP pelvis with lateral of right and left hips. Three views of thesacroiliac joints. Examination performed on 07/24/2025 12:34 pm COMPARISON: No Comparison. INDICATION: Polyarthralgia. Check for inflammatory arthritis. FINDINGS: Mild narrowing of bilateral hip joints. At least moderate proliferativeand sclerotic changes/marginal osteophytosis involving right superolateralgreater than inferomedial acetabulum. Mild marginal osteophytosis of theinferomedial aspect of bilateral femoral heads. Small focus of ossification adjacent to the superolateralaspect of the right hip joint, consistent chronically fracturedosteophytes/intra-articular osseous body. Global over coverage of bilateral femoral heads by posterior acetabularwall, right considerably greater than left, may predispose the patient topincer type femoroacetabular impingement. Mild straightening of theanterior superior aspect of bilateral femoral head-neck junctions may predispose the patient to minimal cam typefemoroacetabular impingement. No discrete cam type dysplastic osseous bumpis identified. Unremarkable appearance of the pubic symphysis. Mild osteoarthritic changes of bilateral SI joints. No radiographicfindings to suggest sacroiliitis. Proliferative changes/enthesopathy of the superolateral aspect of the leftgreater trochanter. Facet arthropathy at the lumbosacral junction, more pronounced on theright. Surgical clips in the pelvis. Pelvic phleboliths. Otherwise unremarkablesoft tissues. IMPRESSION: 1. Osteoarthritis of bilateral hips, as described above. Proliferative andsclerotic changes are most pronounced in the right acetabulum. 2. Morphologic changes may predispose the patient to right greater thanleft global pincer type femoroacetabular impingement. 3. Morphologic changes that may predispose the patient to minimalbilateral cam type femoroacetabular impingement. 4. No radiographic evidence of sacroiliitis. Mild osteoarthritis ofbilateral SI joints. 5. Facet arthropathy at the lumbosacral junction, more pronounced on theright. Other findings as above. Aline Green MD IMG DIAGNOSTIC IMAGING ORDERABLE S Final Result * XR Sacroiliac Joints 3+ VW (07/24/2025 12:34 PM EDT) Anatomical Region Laterality Modality Pelvis, Lumbar Spine Digital Rad iography 07/24/2025 1:00 PM EDT Impressions 07/24/2025 12:56 PM EDT 1. Osteoarthritis of bilateral hips, as described above. Proliferative and sclerotic changes are most pronounced in the right acetabulum. 2. Morphologic changes may predispose the patient to right greater than left global pincer type femoroacetabular impingement. 3. Morphologic changes that may predispose the patient to minimal bilateral cam type femoroacetabular impingement. 4. No radiographic evidence of sacroiliitis. Mild osteoarthritis of bilateral SI joints. 5. Facet arthropathy at the lumbosacral junction, more pronounced on the right. Other findings as above. Narrative 07/24/2025 12:56 PM EDT EXAM DESCRIPTION: Hip pain protocol-bilateral. Sacroiliac joints 3+ views. TECHNIQUE: VIEW: AP pelvis with lateral of right and left hips. Three views of the sacroiliac joints. Examination performed on 07/24/2025 12:34 pm COMPARISON: No Comparison. INDICATION: Polyarthralgia. Check for inflammatory arthritis. FINDINGS: Mild narrowing of bilateral hip joints. At least moderate proliferative and sclerotic changes/marginal osteophytosis involving right superolateral greater than inferomedial acetabulum. Mild marginal osteophytosis of the inferomedial aspect of bilateral femoral heads. Small focus of ossification adjacent to the superolateral aspect of the right hip joint, consistent chronically fractured osteophytes/intra- articular osseous body. Global over coverage of bilateral femoral heads by posterior acetabular wall, right considerably greater than left, may predispose the patient to pincer type femoroacetabular impingement. Mild straightening of the anterior superior aspect of bilateral femoral head-neck junctions may predispose the patient to minimal cam type femoroacetabular impingement. No discrete cam type dysplastic osseous bump is identified. Unremarkable appearance of the pubic symphysis. Mild osteoarthritic changes of bilateral SI joints. No radiographic findings to suggest sacroiliitis. Proliferative changes/enthesopathy of the superolateral aspect of the left greater trochanter. Facet arthropathy at the lumbosacral junction, more pronounced on the right. Surgical clips in the pelvis. Pelvic phleboliths. Otherwise unremarkable soft tissues. Procedure Note Hardik Posada MD - 07/24/2025 EXAM DESCRIPTION: Hip pain protocol-bilateral. Sacroiliac joints 3+ views. TECHNIQUE: VIEW: AP pelvis with lateral of right and left hips. Three views of thesacroiliac joints. Examination performed on 07/24/2025 12:34 pm COMPARISON: No Comparison. INDICATION: Polyarthralgia. Check for inflammatory arthritis. FINDINGS: Mild narrowing of bilateral hip joints. At least moderate proliferativeand sclerotic changes/marginal osteophytosis involving right superolateralgreater than inferomedial acetabulum. Mild marginal osteophytosis of theinferomedial aspect of bilateral femoral heads. Small focus of ossification adjacent to the superolateralaspect of the right hip joint, consistent chronically fracturedosteophytes/intra-articular osseous body. Global over coverage of bilateral femoral heads by posterior acetabularwall, right considerably greater than left, may predispose the patient topincer type femoroacetabular impingement. Mild straightening of theanterior superior aspect of bilateral femoral head-neck junctions may predispose the patient to minimal cam typefemoroacetabular impingement. No discrete cam type dysplastic osseous bumpis identified. Unremarkable appearance of the pubic symphysis. Mild osteoarthritic changes of bilateral SI joints. No radiographicfindings to suggest sacroiliitis. Proliferative changes/enthesopathy of the superolateral aspect of the leftgreater trochanter. Facet arthropathy at the lumbosacral junction, more pronounced on theright. Surgical clips in the pelvis. Pelvic phleboliths. Otherwise unremarkablesoft tissues. IMPRESSION: 1. Osteoarthritis of bilateral hips, as described above. Proliferative andsclerotic changes are most pronounced in the right acetabulum. 2. Morphologic changes may predispose the patient to right greater thanleft global pincer type femoroacetabular impingement. 3. Morphologic changes that may predispose the patient to minimalbilateral cam type femoroacetabular impingement. 4. No radiographic evidence of sacroiliitis. Mild osteoarthritis ofbilateral SI joints. 5. Facet arthropathy at the lumbosacral junction, more pronounced on theright. Other findings as above. Aline Green MD IMG DIAGNOSTIC IMAGING ORDERABLE S Final Result * XR Foot 3+ VW Bilateral (07/24/2025 12:34 PM EDT) Anatomical Region Laterality Modality Foot Bilateral Digital Radiogra phy 07/24/2025 12:5 6 PM EDT Impressions 07/24/2025 12:53 PM EDT 1. Osteoarthritis, most pronounced (severe) in the right 1st MTP joint, with hallux rigidus. 2. No radiographic-specific evidence of inflammatory arthropathy. 3. Other findings as above. Narrative 07/24/2025 12:53 PM EDT EXAM DESCRIPTION: Feet both-3 views each TECHNIQUE: AP, oblique, lateral of bilateral feet. Examination was performed on 07/24/2025 COMPARISON: No Comparison. INDICATION: Polyarthralgia. Check for inflammatory arthritis. FINDINGS: Severe right 1st MTP osteoarthritis with severe joint space narrowing, prominent dorsal greater than lateral osteophytes, hallux rigidus. Focus of ossification along the dorsomedial aspect of the right 1st MTP joint measuring 5 mm is consistent with an intra-articular loose bodies/chronically fractured osteophyte. Mild left 1st MTP osteoarthritis. Mild osteoarthritic changes of the interphalangeal joints of the toes, most pronounced in the left foot, in the 2nd and 3rd distal interphalangeal joints. At least mild osteoarthritic changes of bilateral TMT joints, most pronounced in the right greater than left 1st TMT. Mild narrowing of right greater than left navicular-medial cuneiform articulations. Mild left talonavicular osteoarthritis with dorsal osteophyte arising from the proximal aspect of the left navicular. No erosions. Bilateral Achilles enthesopathy. Left greater than right plantar calcaneal spurs. No focal or diffuse soft tissue swelling. Procedure Note Hardik Posada MD - 07/24/2025 EXAM DESCRIPTION: Feet both-3 views each TECHNIQUE: AP, oblique, lateral of bilateral feet. Examination was performed on 07/24/2025 COMPARISON: No Comparison. INDICATION: Polyarthralgia. Check for inflammatory arthritis. FINDINGS: Severe right 1st MTP osteoarthritis with severe joint space narrowing,prominent dorsal greater than lateral osteophytes, hallux rigidus. Focusof ossification along the dorsomedial aspect of the right 1st MTP jointmeasuring 5 mm is consistent with an intra-articular loose bodies/chronically fractured osteophyte. Mild left 1st MTP osteoarthritis. Mild osteoarthritic changes of the interphalangeal joints of the toes,most pronounced in the left foot, in the 2nd and 3rd distalinterphalangeal joints. At least mild osteoarthritic changes of bilateral TMT joints, mostpronounced in the right greater than left 1st TMT. Mild narrowing of right greater than left navicular-medial cuneiformarticulations. Mild left talonavicular osteoarthritis with dorsalosteophyte arising from the proximal aspect of the left navicular. No erosions. Bilateral Achilles enthesopathy. Left greater than right plantar calcanealspurs. No focal or diffuse soft tissue swelling. IMPRESSION: 1. Osteoarthritis, most pronounced (severe) in the right 1st MTP joint,with hallux rigidus. 2. No radiographic-specific evidence of inflammatory arthropathy. 3. Other findings as above. Aline Green MD IM DIAGNOSTIC IMAGING ORDERABLE S Final Result from Last 3 Months Insurance [facility] Care Teams Sales Counselor Relationship Specialty Start Date End Date Nadia Gomez [address] [place] [phone] PCP - General 05/25/25 Nadia Gomez [address] [place] [phone] PCP - Insurance Assigned PCP 07/27/25
[2025-09-21 10:34] VITALS: BP 138/84; PULSE 82; O2SAT 98; BMI 35.8
--- OUTSIDE RECORDS SUMMARY | 2025-09-21 10:34 | XMS_ITS | Continuity of Care Document ---
Author Organization [place] - [employer] [facility], [facility] Address [address] [facility] [place] [address] Care Team Providers Care Stock Hanger Name Role Phone NADIA GOMEZ Primary Care Provider Assessment No assessment recorded. Plan of Treatment Reminders Order Date Submit Date Provider Last Modified By Organization Details Last Modified Time Details Appointments None recorded. Lab vitamin D, 25-hydroxy, total, serum [address], [address], 02:32:49 CBC w/ auto diff [address], [address], 02:32:49 lipid panel, serum [address], [address], 02:32:48 CMP, serum or plasma [address], [address], 5 02:32:49 Referral physical therapist referral - Right-sided weakness, balance deficits, recurrent right knee Johnson s cyst, arthritis, and functional limitations affecting mobility and daily activities. Patient reports progressive right lower extremity pain, swelling, and instability , with tingling and numbness in the right foot after prolonged standing. History of back surgery 10 years ago with ongoing balance issues. Currently experiences difficulty with gait, transfers, and ADLs. Referral Requested: Physical therapy evaluation and ongoing management for strength, balance, gait training, and functional mobility. 2024 025 [email or web address] 5 [facility] [place] - Joycelyn Gonzalez, [address] [facility] , Michael Coon, [place], [address], 09:13:52 Procedures None recorded. Surgeries None recorded. Imaging None recorded. Medication Orders None recorded. Patient TargetsNo targets recorded. Patient InstructionsNo instructions recorded. Reason for Referral Physical Therapist Referral for Arthritis PT evaluation and ongoing management for strength, balance, gait training, and function mobility. Right-sided weakness, balance deficits, recurrent right knee Johnson s cyst, arthritis, and functional limitations affecting mobility and daily activities.Patient reports progressive right lower extremity pain, swelling, and instability, with tingling and numbness in the right foot after prolonged standing. History of back surgery 10 years ago with ongoing balance issues. Currently experiences difficulty with gait, transfers, and ADLs.Referral Requested: Physical therapy evaluation and ongoing management for strength, balance, gait training, and functional mobility. Referring Physician: Kaelyn Finley, Family Medicine, Encounter Date: 06/28/2025 Results Created Date Observation Date Name Description Value Unit Range Abnormal Flag Note LastModifiedBy Organization Detail LastModifiedTime 07/06/2007/07/2025 LIPID PANEL , STAND ALESSANDRA cholesterol, total 253 mg/dL <200 high Not Available [facility] [address] [place], [address], 07/07/2025 08:14:33 07/06/2007/07/2025 LIPID PANEL , STAND ALESSANDRA HDL cholesterol 56 mg/dL > or = 50 normal Not Available [facility] [address], [place], [address], 07/07/2025 08:14:33 07/06/2007/07/2025 LIPID PANEL , STAND ALESSANDRA triglyceride s 95 mg/dL <150 normal Not Available [facility] [address], [place], [address], 07/07/2025 08:14:33 07/06/2007/07/2025 LIPID PANEL , STAND ALESSANDRA LDL-choleste rol 176 mg/dL _(anthony c) high Refer ence range : <100 Seamus able range <100 mg/dL for prima ry preve ntion ; <70 mg/dL for patie nts with CHD or diabe tic patie nts with > or = 2 CHD risk facto rs. LDL-C is now calcu lated using the Noemy n-Hop kins calcu latio n, which is a valid ated novel danielao d sarahyi raymond kashmir r accur acy than the Fried belia equat ion in the estim ation of LDL-C . Noemy thomson SS et al. NERY. 2013; 310(1 9): 2061- 206 (http ://ed ucati on.Inviragen serafinNode1. com/f aq/FA Q164) Not Available [facility] [place] [facility] [address], [address], 07/07/2025 08:14:33 07/06/2007/07/2025 LIPID PANEL , STAND ALESSANDRA chol/HDLC ratio 4.5 (calc ) <5.0 normal Not Available [facility] [place] [facility] [address], [place], [address], 07/07/2025 08:14:33 07/06/2007/07/2025 LIPID PANEL , STAND ALESSANDRA non HDL cholesterol 197 mg/dL _(anthony c) <130 high For patie nts with diabe francisca plus 1 major ASCVD risk facto r, treat ing to a non-H DL-C goal of <100 mg/dL (LDL- C of <70 mg/dL ) is stanley tavarez optio n. Not Available [facility] [place] [facility] [address], [place], [address], 07/07/2025 08:14:33 07/06/2007/07/2025 COMPR EHENS DAISY METAB OLIC PANEL glucose 89 mg/dL 65-99 normal Fasti ng refer ence inter ashley Not Available [facility] [address], [place], [address], 07/07/2025 08:14:34 07/06/2007/07/2025 COMPR EHENS DAISY METAB OLIC PANEL urea nitrogen (BUN) 18 mg/dL 7-25 normal Not Available [facility] [address], [place], [address], 07/07/2025 08:14:34 07/06/2007/07/2025 COMPR EHENS DAISY METAB OLIC PANEL creatinine 0.86 mg/dL 0.50-1 .05 normal Not Available [facility] [place] [facility] [address], [place], [address], 07/07/2025 08:14:34 07/06/2007/07/2025 COMPR EHENS DAISY METAB OLIC PANEL eGFR 77 mL/mi n/1.7 3m2 > or = 60 normal Not Available [facility] [address], [place], [address], 07/07/2025 08:14:34 07/06/2007/07/2025 COMPR EHENS DAISY METAB OLIC PANEL BUN/creatini ne ratio SEE NOTE: (calc ) 6-22 Not Repor miles: BUN and Creat inine are withi n refer ence range . Not Available [facility] [address], [place], [address], 07/07/2025 08:14:34 07/06/2007/07/2025 COMPR EHENS DAISY METAB OLIC PANEL sodium 139 mmol/ L 135-14 6 normal Not Available [facility] [address], [place], [address], 07/07/2025 08:14:34 07/06/2007/07/2025 COMPR EHENS DAISY METAB OLIC PANEL potassium 4.7 mmol/ L 3.5-5. 3 normal Not Available [facility] [address], [place], [address], 07/07/2025 08:14:34 07/06/2007/07/2025 COMPR EHENS DAISY METAB OLIC PANEL chloride 105 mmol/ L 98-110 normal Not Available [facility] [address], [place], [address], 07/07/2025 08:14:34 07/06/2007/07/2025 COMPR EHENS DAISY METAB OLIC PANEL carbon dioxide 27 mmol/ L 20-32 normal Not Available [facility] [address], [place], [address], 07/07/2025 08:14:34 07/06/2007/07/2025 COMPR EHENS DAISY METAB OLIC PANEL calcium 9.8 mg/dL 8.6-10 .4 normal Not Available [facility] [address], [place], [address], 07/07/2025 08:14:34 07/06/2007/07/2025 COMPR EHENS DAISY METAB OLIC PANEL protein, total 6.2 g/dL 6.1-8. 1 normal Not Available [facility] [address], [place], [address], 07/07/2025 08:14:34 07/06/2007/07/2025 COMPR EHENS DAISY METAB OLIC PANEL albumin 3.8 g/dL 3.6-5. 1 normal Not Available [facility] [address], [place], [address], 07/07/2025 08:14:34 07/06/20 25 07/07/2025 COMPR EHENS DAISY METAB OLIC PANEL globulin 2.4 g/dL_ (calc ) 1.9-3. 7 normal Not Available [facility] [address], [place], [address], 07/07/2025 08:14:34 07/06/2007/07/2025 COMPR EHENS DAISY METAB OLIC PANEL albumin/glob ulin ratio 1.6 (calc ) 1.0-2. 5 normal Not Available [facility] [address], [place], [address], 07/07/2025 08:14:34 07/06/20 25 07/07/2025 COMPR EHENS DAISY METAB OLIC PANEL bilirubin, total 0.3 mg/dL 0.2-1. 2 normal Not Available [facility] [address], [place], [address], 07/07/2025 08:14:34 07/06/2007/07/2025 COMPR EHENS DAISY METAB OLIC PANEL alkaline phosphatase 84 U/L 37-153 normal Not Available [facility] [address], [place], [address], 07/07/2025 08:14:34 07/06/20 25 07/07/2025 COMPR EHENS DAISY METAB OLIC PANEL AST 17 U/L 10-35 normal Not Available [facility] [address], [place], [address], 07/07/2025 08:14:34 07/06/20 25 07/07/2025 COMPR EHENS DAISY METAB OLIC PANEL ALT 21 U/L 6-29 normal Not Available [facility] [address], [place], [address], 07/07/2025 08:14:34 07/06/2007/07/2025 CBC (INCL UDES DIFF/ PLT) white blood cell count 7.4 thous and/u L 3.8-10 .8 normal Not Available [facility] [place] [facility] [address], [place], [address], 07/07/2025 02:32:49 07/06/2007/07/2025 CBC (INCL UDES DIFF/ PLT) red blood cell count 4.57 alexandru on/uL 3.80-5 .10 normal Not Available [facility] [address], [place], [address], 07/07/2025 02:32:49 07/06/2007/07/2025 CBC (INCL UDES DIFF/ PLT) hemoglobin 13.7 g/dL 11.7-1 5.5 normal Not Available [facility] [address], [place], [address], 07/07/2025 02:32:49 07/06/2007/07/2025 CBC (INCL UDES DIFF/ PLT) hematocrit 44.0 % 35.0-4 5.0 normal Not Available [facility] [address], [place], [address], 07/07/2025 02:32:49 07/06/2007/07/2025 CBC (INCL UDES DIFF/ PLT) MCV 96.3 fL 80.0-1 00.0 normal Not Available [facility] [address], [place], [address], 07/07/2025 02:32:49 07/06/2007/07/2025 CBC (INCL UDES DIFF/ PLT) MCH 30.0 pg 27.0-3 3.0 normal Not Available [facility] [address] [place], [address], 07/07/2025 02:32:49 07/06/2007/07/2025 CBC (INCL UDES DIFF/ PLT) MCHC 31.1 g/dL 32.0-3 6.0 low For adult s, a sligh t decre ase in the calcu lated MCHC value (in the range of 30 to 32 g/dL) is most likel y not clini safia signi ash t; sandra er, it shoul d be inter prete d with cauti on in [facility] n with other red cell alisson eters and the patie nt's clini anthony condi tion. Not Available [facility] [place] [facility] [address], [place], [address], 07/07/2025 02:32:49 07/06/2007/07/2025 CBC (INCL UDES DIFF/ PLT) RDW 12.2 % 11.0-1 5.0 normal Not Available [facility] [address], [place], [address], 07/07/2025 02:32:49 07/06/2007/07/2025 CBC (INCL UDES DIFF/ PLT) platelet count 310 thous and/u L 140-40 0 normal Not Available [facility] [address], [place], [address], 07/07/2025 02:32:49 07/06/2007/07/2025 CBC (INCL UDES DIFF/ PLT) MPV 9.2 fL 7.5-12 .5 normal Not Available [facility] [place] [facility] [address], [place], [address], 07/07/2025 02:32:49 07/06/20 25 07/07/2025 CBC (INCL UDES DIFF/ PLT) absolute neutrophils 4618 cells /uL 1500-7 800 normal Not Available [facility] [address], [place], [address], 07/07/2025 02:32:49 07/06/2007/07/2025 CBC (INCL UDES DIFF/ PLT) absolute lymphocytes 1806 cells /uL 850-39 00 normal Not Available [facility] [place] [facility] [address], [place], [address], 07/07/2025 02:32:49 07/06/2007/07/2025 CBC (INCL UDES DIFF/ PLT) absolute monocytes 747 cells /uL 200-95 0 normal Not Available [facility] [place] [address], [place], [address], 07/07/2025 02:32:49 07/06/2007/07/2025 CBC (INCL UDES DIFF/ PLT) absolute eosinophils 170 cells /uL 15-500 normal Not Available [facility] [place] [facility] [address], [place], [address], 07/07/2025 02:32:49 07/06/2007/07/2025 CBC (INCL UDES DIFF/ PLT) absolute basophils 59 cells /uL 0-200 normal Not Available [facility] [place] [facility] [address], [place], [address], 07/07/2025 02:32:49 07/06/2007/07/2025 CBC (INCL UDES DIFF/ PLT) neutrophils 62.4 % normal Not Available [facility] [place] [facility] [address], [place], [address], 07/07/2025 02:32:49 07/06/2007/07/2025 CBC (INCL UDES DIFF/ PLT) lymphocytes 24.4 % normal Not Available [facility] [place] [facility] [address], [place], [address], 07/07/2025 02:32:49 07/06/2007/07/2025 CBC (INCL UDES DIFF/ PLT) monocytes 10.1 % normal Not Available [facility] [address], [address], 07/07/2025 02:32:49 07/06/2007/07/2025 CBC (INCL UDES DIFF/ PLT) eosinophils 2.3 % normal Not Available [facility] [address], [address], 07/07/2025 02:32:49 07/06/2007/07/2025 CBC (INCL UDES DIFF/ PLT) basophils 0.8 % normal Not Available [address], [address], 07/07/2025 02:32:49 07/06/2007/07/2025 VITAM IN D,25- OH,TO DANIEL,I A vitamin [...] /MS is recom effie d: order code 98857 (doretha ents >2yrs ). See Note 1 Note 1 For addit ional infor chavo nava refer to http: //davin Felton stDia gnost ics.c om/fa q/FAQ 199 (This link is being provi ded for infor mazin baig/ educsamson bustamante purpo ses only. ) Not Available [facility] [address] [place] [address] [address], [place], [address], 07/07/2025 07:03:41 Result Notes None recorded. Problems Name Problem SNOMED Code Status Onset Date Resolution Date Notes Provider Name and Address Organization Details Recorded Time Menstrua l migraine 65792040 Completed 10/20/2017 Nadia Gomez MD [address] [place] [address], [address], [facility] [employer] 8 11:22:45 Pain of multiple joints 47825092 Active osteoart hritis hips, hand , knees , neck, lower back Nadia Gomez MD [address] [place] [address], [address], [employer] 8 11:21:54 Ptosis of eyelid 00347922 Completed 07/17/2015 Nadia Gomez MD [address] [place] [address], [address], [facility] [employer] 5 10:14:50 Candidia sis 37916771 Completed 01/24/2024 DION VALDES DNP [address] [place] [address], [address], [employer] 4 12:43:20 Inguinal pain 888146948 Completed 07/17/2015 Nadia Gomez MD [address] [place] [address], [address], [facility] [employer] 5 10:14:50 Sciatica 43553548 Completed 07/17/2015 Nadia Gomez MD [address] [place] [address], [address], [facility] [employer] 5 10:14:50 Low back pain 789455122 Completed 07/17/2015 Nadia Gomez MD [address] [place] [address], [address], [facility] [employer] 5 10:14:50 Eczema 96766595 Active Nadia Gomez MD [address] [place] [address], [address], [facility] [employer] 5 10:37:26 Atrophic vaginiti s 08114391 Active Nadia Gomez MD [address] [place] [address], [address], [facility] [employer] [facility] 5 13:38:40 Vitamin D deficien cy 27643793 Active Nohemi Ferrara LPN [facility], [facility] [employer] [facility] 5 11:18:50 Sciatica 03147576 Active Nadia Gomez MD [address] [place] [address], [address], [facility] [employer] 6 13:40:49 Acute sinusiti s 37569326 Completed 06/27/2014 Nadia Gomez MD [address] [place] [address], [address], [facility] [employer] [facility] 4 10:27:44 Seborrhe ic dermatit is 80881942 Completed 07/17/2015 Nadia Gomez MD [address] [place] [address], [address], [facility] [employer] [facility] 5 10:14:50 Lumbar sprain 379441452 Completed 01/24/2024 DION VALDES DNP [address] [place] [address], [address], [facility] [employer] 4 12:43:32 Psoriasi s 0598283 Completed 11/20/2013 Nadia Gomez MD [address] [place] [address], [address], [facility] [employer] 4 09:33:50 Nasal polyp Completed 07/17/2015 Nadia Gomez MD [address] [place] [address], [address], [facility] [employer] [facility] 5 10:14:50 Asthma 594989107 Active Nadia Gomez MD [address] [place] [address], [address], [facility] [employer] [facility] 5 13:38:40 Pain in toe 934974058 Completed 06/27/2014 Nadia Gomez MD [address] [place] [address], [address], [facility] [employer] 4 10:28:01 Knee pain Completed 06/27/2014 Nadia Gomez MD [address] [place] [address], [address], [facility] [employer] 4 10:28:01 Premenst rual tension syndrome 16199685 Completed 10/20/2017 Nadia Gomez MD [address] [place] [address], [address], [facility] [employer] 8 11:23:02 Upper respirat ory infectio n 88798798 Completed 06/27/2014 Nadia Gomez MD [address] [place] [address], [address], [facility] [employer] 4 10:27:44 Overweig ht 214117231 Completed 06/27/2014 Nadia Gomez MD [address] [place] [address], [address], [facility] [employer] 4 10:27:44 Obesity 887118614 Active Nadia Gomez MD [address] [place] [address], [address], [facility] [employer] 5 13:38:40 Sinusiti s 41150178 Completed 01/24/2024 DION VALDES DNP [address] [place] [address], [address], [facility] [employer] 4 12:43:46 Diarrhea 59542039 Completed 07/17/2015 Nadia Gomez MD [address] [place] [address], [address], [facility] [employer] 5 10:14:50 Family history of ischemic heart disease 137642329 Active 2023 DION VALDES DNP [address] [place] [address], [address], [facility] [employer] 4 19:12:52 Hypertro phy of nasal turbinat es 19190042 Active 2023 DION VALDES DNP [address] [place] [address], [address], [facility] [employer] 4 19:12:56 Anxiety 69553714 Active 2023 DION VALDES DNP [address] [place] [address], [address], [facility] [employer] 4 19:27:38 Dizzines s 351182104 Active 2023 DION VALDES DNP [address] [place] [address], [address], [facility] [employer] 4 19:28:30 Nausea 497390152 Active 2023 DION VALDES DNP [address] [place] [address], [address], [facility] [employer] 4 19:28:32 Pain of shoulder region 92469210 Active 2023 DION VALDES DNP [address] [place] [address], [address], [facility] [employer] 4 19:28:34 Tight chest 72041362 Active 2023 DION VALDES DNP [address] [place] [address], [address], [facility] [employer] 4 19:28:36 Pain of right shoulder joint 9024378969 4344332 Active 2023 DION VALDES DNP [address] [place] [address], [address], [facility] [employer] 4 00:10:40 Snoring 33775502 Active 2023 DION VALDES DNP [address] [place] [address], [address], [facility] [employer] 4 00:10:51 Problem Notes None recorded. Procedures Surgical History Date Name Laterality Status Provider Name and Address Organization Details Recorded Time 12/02/19 18 Colonoscopy completed Hermelinda Kirkpatrick CMA [place] [employer] 12/09/2017 13:27:44 09/28/19 18 EGD completed Nohemi Ferrara LPN [facility] [employer] [facility] 10/01/2017 11:41:36 Section completed Nadia Gomez MD [address] [place] [address], [address], [facility] 11/20/2013 09:34:51 Breast Implants completed Nadia Gomez MD [address] [place] [address], [address], [facility] [employer] [facility] 11/20/2013 09:56:55 Imaging Results None recorded. Procedure Notes None recorded. Medical Equipment None Reported. Allergies Allergen ID Allergen Name Allergen Category Reaction Reaction Severity Criticality Documentation Date Start Date Code Code System Note Provider Name and Address Organization Details Recorded Time 72660 penicilli n V Not available Not available Not available Not available 01/24/2015 7984 RxNorm This may not be a true aller gy, May be a non-a llerg ic amox rash. pt. state d she was retes miles last fall and she is not aller gic to any antib iotic (2024) Celia Olivares [facility] [employer] [facility] 5 11:11:07 40322 latex environme nt,medica tion Not available Not available Not available 06/21/2018 79971 91 RxNorm rash Graham Mcbride LPN [address] [place], [address], [facility] [employer] [facility] 5 08:13:29 Medications Name Sig Start Date [...] Not Available Not Available Not Available betametha sone, augmented 0.05 % topical cream Apply by [...] MOUTH TWICE A DAY FOR 7 DAYS 06/28 completed Not Available Not Available Not [...] No t Available Vitals Date Recorded Body mass index (BMI) Body height Provider Name and Address Organization Details Last Updated DateTime 06/28/2025 35.4 kg/m2 173.36 cm KAELYN FINLEY, ANGELICA [address] [place], [address], [facility] [employer] [facility] 06/29/2025 15:59:50 Date Recorded Body weight Heart rate Oxygen saturation Systolic And Diastolic Provider Name and Address Organization Details Last Updated DateTime 06/28/2025 991990.7 7 g 73 /min 99 % 132/82 mm[Hg] Graham Mcbride LPN [address] [place], [address], [facility] [employer] [facility] 06/28/2025 08:30:28 Social History Question Answer Notes LastModified by Organizat ion Details LastModified Time Tobacco Smoking Status Never Smoker Hermelinda Kirkpatrick, [facility], [facility] [employer] [facility] 11/14/2012 08:55:37 Do You Have An Advance Directive? No Information not available 11/20/2013 What Is Your Level Of Caffeine Consumption? Moderate 1.5 Cups Of Coffee A Day (2024) [email or web address] Information not available 06/28/2025 How Much Tobacco [...] Are You Following? SPECIFIC Minimal Dairy (2024) [email or web address] Information not available 06/28/2025 Which Illicit Or Recreational Drugs Have You Used? No Information not available 11/14/2012 What Is The Highest Grade Or Level Of School You Have Completed Or The Highest Degree You Have Received? [id number] [email or web address] Information not available 06/28/2025 Hard Of Hearing Or Deaf In One Or Both Ears? No Information not available 11/20/2013 Legally Blind In One Or Both Eyes? No Information no t available 11/20/2013 Foreign Travel Yes Informatio n not available 02/26/2016 Do You Have A Family History Of Mental Health Or Substance Abuse? Yes Information not available 11/20/2013 Language Upper Sorbian Information no t available 02/26/2016 Country Of Origin [facility] Informa tion not available 02/26/2016 Dietary Lactose Free Information not available 02/26/2016 Marital Status [email or web address] Informati on not available 10/20/2018 What Was The Date Of Your Most Recent Tobacco Screening? 07/11/2025 [email or web address] Information not available 07/11/2025 How Many Children Do You Have? 2 Information not available 11/14/2012 Obese No Information no t available 02/26/2016 Overweight Yes Information no t available 02/26/2016 Do You Have Any Pets? Yes Information not available 01/07/2023 What Is Your Relationship Status? Lives With Someone (2024) [email or web address] Information not available 06/28/2025 Do You Use [...] 02/26/2016 Are You Currently In School? No Information not available 06/28/2025 Sex: Female Functional Status Question Answer Note LastModified by Organizat ion Details LastModified Time Do you use any illicit or recreational drugs? No ushin Information not available 01/24/2024 What is your level of alcohol consumption? Occasional on special occastions (2024) Information not available 06/28/2025 Do you or have you ever used smokeless tobacco? Never used smokeless tobacco Information not available 09/08/2019 Are you currently employed? No [email or web address] Information not available 06/28/2025 What is your occupation? retired [email or web address] Information not available 06/28/2025 Do you or have you ever used e-cigarettes or vape? Never used electronic cigarettes Information not available 09/08/2019 What is your exercise level? Moderate speed walk, hike, lifts weights, stretching (2024) [email or web address] Information not available 06/28/2025 Mental Status None recorded. Family History Relationship Description Onset Age of this Age Resolved Age Notes LastModified by Organization Details LastModified Time Father Hypertensive disorder ankylo sing spondy litis ssalice Not available 02/26/2016 16:55:59 Brother Depressive disorder ssalice Not available 2015 16:55:59 Paternal Grandmother Neoplasm of brain ssalice Not available 2015 16:55:59 Medical History Condition Response Asthma, COPD, Breathing or Lung Disorder N Gout N Anxiety/Depression N Cardiac History, Heart Murmur, CA N Eye or Vision Problems N Gynecologic problems N Hernia N Thyroid Problems N GI Problems N Developmental or Behavioral Disorders N Blood Pressure High or Low N Breast Problem N Skin Problems N Food or Environmental Allergies Y Diabetes N Muscle, Joint, or Bone Problems N Bladder,Kidney Problems or Recurrent UTI 's N Bleeding Disorder N Arthritis N Cancer [...] 30 mcg/0.3 mL dose 1 completed Tyesha Rousseauain, RMA null, [facility] 2023 09:40:11 COVID-19, mRNA, LNP-S, PF, 30 mcg/0.3 mL dose 1 completed Tyesha Rousseauain RMA null, [facility] 2023 09:40:11 Td (adult) 5 completed Not Available [facility] 05/16/2020 15:08:16 Influenza, split virus, trivalent, preservative 5 completed Not Available [facility] 10/14/2019 02:38:47 COVID-19, mRNA, LNP-S, PF, 30 mcg/0.3 mL dose 1 completed Tyesha Rousseauain, RMA null, [facility] 2023 09:40:11 COVID-19, mRNA, LNP-S, PF, 30 mcg/0.3 mL dose 1 completed Tyesha Bond, RMA null, [facility] 2023 09:40:11 COVID-19, mRNA, LNP-S, PF, alonzo-sucrose, 30 mcg/0.3 mL 4 completed Not Available [facility] 07/11/2025 10:55:35 zoster recombinant 5 completed Not Available [facility] 07/11/2025 10:55:35 COVID-19, mRNA, LNP-S, bivalent, PF, 30 mcg/0.3 mL dose 2 completed Not Available [facility] 07/11/2025 10:55:35 Influenza, split virus, quadrivalent, PF 3 completed Not Available [facility] 07/11/2025 10:55:35 COVID-19, mRNA, LNP-S, PF, 50 mcg/0.5 mL 3 completed Not Available [facility] 07/11/2025 10:55:35 Past Encounters Encounter ID Performer Location Encounter Start Date Encounter Closed Date Diagnosis/Indication Diagnosis SNOMED-CT Code Diagnosis ICD10 Code Diagnosis IMO Codes Diagnosis Note [id number] ANGELICA GOTTI Eliazar [facility] [address] [facility] JEFF NEWELL [address] 06/28/2025 08:04:09 06/28/2025 09:24:14 Adult health examination 659713815 Z00.00 Assessment Annual adult physical exam no acute findings.P [facility] maintenanc e and screening up to date.Obesi [...] HPV February 2024 (normal)Ma mmogram scheduled for Julyolono scopy completed 12/30/2021 , several diverticul a, repeat in 5 years (2026)Immu nizations: Declined flu and Tdap today; will receive COVID-19 at [facility]; will verify completion of Shingrix series.Con tinue routine annual follow-up and age-approp riate screenings . Requires d iphtheria, tetanus and pertussis vaccination 752724507 Z23 277161 As outlined in adult annual examinatio n Requires v aricella vaccination 282308503 Z23 432910 As outlined in adult annual examinatio n Vitamin D deficiency 347 56945 E55.9 07789 Assessment Patient s last Vitamin D level (2022) was low at 34 ng/mL. Currently taking Vitamin D supplement ation.Plan Order repeat Vitamin D level.Adju st Vitamin D supplement ation based on results.Re assess at follow-up to ensure adequacy of therapy. Arthritis 9044891 M19.90 99280 Assessment Right-side d Arthritis and Mobility Issues [...] in the right foot after prolonged standing.P lisaRefer to physical therapy for balance, gait, and mobility training.C onsider MRI of the lumbar spine to evaluate for recurrent or residual pathology. Follow up to review physical therapy progress and reassess need for further imaging or interventi ons. Influenza vaccination declined 390065452 Z28.21 92670565 As outlined in adult annual examinatio n SARS-CoV-2 vaccination declined 0216598187 Z28.21 [id number] As outlined in adult annual examinatio n Synovial p opliteal cyst of right knee 0924590658 M71.21 7447857 Assessment Mild right foot swelling likely secondary to Johnson s cystPlanR ecommend rest, elevation, and compressio n as tolerated. Monitor for pain, redness, or increased swelling.F ollow up if symptoms worsen or persist. Obese class II 257877042 1 51112 E66.812 [id number] Assessment Obesity (BMI 35.3)PlanC ounsel on healthy diet, portion control, and regular physical activity.E ncourage gradual, sustainabl e weight loss. Elevated blood-pressure reading without diagnosis of hypertension 930308855 R03.0 687571 Assessment Patient s blood pressure is slightly elevated at this visit (132/82). No prior history of hypertensi on. Patient reports adherence to lifestyle modificati ons, including diet and exercise.P lanCbenitou e home and office blood pressure monitoring .Reinforce ongoing lifestyle modificati ons: balanced diet, regular exercise, weight management .Reassess blood pressure at next routine visit or sooner if readings increase. Health Concerns Section Related Observation LastModified by Organization Detai ls LastModified Time None Recorded Concern Status LastModified by Organization Details LastModified Time None Recorded Payers Encounter Date Sequence Insurance Name Policy Number Policy Chambers Covered Member ID Chambers Member ID Guarantor Name 06/28/2025 1 [facility] [id number] Antonette Felicianoridge [id number] Antonette Estrada [place] Notes Date Note Type Note Provider Name and Address Organization Details Recorded Time text/html [facility] Lung Cancer screeningReported by PatientLung Cancer screening:For identified risk factors, patient reportslife-time non-smoker. [facility] - Annual Physical - female 50-64 yrsReported by PatientWellnessFor hpi, patient reportshas been to dentist in the last year,eye examination in the last 1-3 years,pap utd, testing every 5 years with hpv (30-65),mammogram utd, every 1-2 yrs (until age 75 yrs),immunization status is up to date,exercising at least 150 minutes per week,sleeps well, andeating balanced diet that includes daily fruits and vegetables(eye exam: january 2025dental exam: march 2025pap smear + hpv: march 20, 2024 at [employer] [facility], normalmammogram: scheduled for july 2025immunizations:flu: declined todaycovid-19: [facility]; patient unsure if series completed). HPIFor urinary symptoms, patient reportsno genitourinary symptoms. For doctor of dental medicine symptoms, patient reportsno gynecologic complaints. QM Colon cancer screening statusReported by StaffColonoscopy: 12/30/21 several left-sided diverticula; repeat in 5 years.ROS as noted in the HPI Patient presents for an annual physical exam with multiple chronic health concerns, including sleep apnea, arthritis, and a history of back surgery. The patient reports progressive balance and mobility issues, predominantly affecting the right side, associated with pain and functional limitations. The patient describes constant swelling and pain in the right foot due to a Johnson s cyst behind the knee, which requires fluid drainage every few months. They report difficulty lifting the right leg, poor balance, and challenges with activities of daily living, including getting dressed. Symptoms have progressively worsened over the past 10 years, with a recent notable decline. The patient has a history of back surgery 10 years ago for cysts compressing the spinal column, resulting in ongoing balance issues and falls. They previously participated in physical therapy under Dr. Gomez, which helped with balance. Additional symptoms include tingling and numbness in the right foot after prolonged standing and pain and instability following workouts. Both feet are reportedly affected in terms of balance. The patient believes some issues may be related to sleep apnea, which they feel affects hormones and appetite. The patient denies urinary or gynecological symptoms, aside from frequent urination since the of their second daughter. They are actively working on weight loss and improving fitness to address their health concerns. [facility] [address] [place], [address], [facility] 06/30/2025 14:06:32 OBGyn Episode No OBEpisode recorded.
--- OUTSIDE RECORDS SUMMARY | 2025-09-21 10:34 | XMS_ITS | Data Portability ---
Author Organization [place] [facility], Allergy Address [address] [place] [id number] Care Team Providers Care Career Counselor Name Role Phone DION VALDES Primary Care Provider AGUSTO DOZIER Referring Provider [phone] Assessment Encounter Date Assessment Date Assessment LastModified by Organization Details LastModified Time 01/04/2025 01/04/2025 Patient has obstructive sleep apnea and is intolerant to CPAP. At the present time her BMI is 35 and she will pursue weight loss and exercise to achieve a BMI of 32 or less. At that time she will contact the office and arrangements for repeat sleep study will be made. [email or web address] Not available 01/04/2025 11:36:11 Plan of Treatment Reminders Order Date Submit Date Provider Last Modified By Organization Details Last Modified Time Details Appointments None record ed. Lab None record ed. Referral None record ed. Procedures None record ed. Surgeries None record ed. Imaging None record ed. Medication Orders None record ed. Patient TargetsNo targets recorded. Patient InstructionsNo instructions recorded. Reason for Referral None Reported. Problems Name Problem SNOMED Code Status Onset Date Resolution Date Notes Provider Name and Address Organization Details Recorded Time Obstructive sleep apnea syndrome 99921310 Active 025 MARLENE YIN MD [address] [facility], [place], [address] [facility] [place] [facility] 11:13:27 Problem Notes None recorded. Medical Equipment None Reported. Medications Name Sig Start Date Stop Date Status Note LastModified by Organization Details LastModified Time fluconazole 150 mg tablet TAKE ONE TABLET BY MOUTH ONE TIME DAILY AT ONSET OF VAGINAL YEAST INFECTION SYMPTOMS active Not Available Not Available No t Available nitrofurantoi n monohydrate/m acrocrystals 100 mg capsule TAKE ONE CAPSULE BY MOUTH TWICE A DAY FOR 7 DAYS active Not Available Not Available No t Available Xhance 93 mcg/actuation breath activated aerosol SPRAY 2 SPRAY INTO BOTH NOSTRILS TWICE A DAY active Not Available Not Available No t Available Vitals Date Recorded Body height Body mass index (BMI) Body weight Provider Name and Address Organization Details Last Updated DateTime 01/04/2025 172.72 cm 35 kg/m2 263704.25 g SARAH COPE [facility] 01/04/2025 11:18:29 Social History None recorded. Functional Status None recorded. Mental Status None recorded. Family History Nothing Reported. Medical History No medical history recorded. Gynecological HistoryNo gynecological history recorded. Obstetrics History GPAL:G 0 P 0 0 0 0 Past Encounters Encounter ID Performer Location Encounter Start Date Encounter Closed Date Diagnosis/Indication Diagnosis SNOMED-CT Code Diagnosis ICD10 Code Diagnosis IMO Codes Diagnosis Note [id number] MARLENE YIN MD [facility] [address] [phone] 01/04/2025 10:42:57 01/04/2025 11:36:03 Obstructive sleep apnea syndrome 91700866 G47.33 Health Concerns Section Related Observation LastModified by Organization Detai ls LastModified Time None Recorded Concern Status LastModified by Organization Details LastModified Time None Recorded Advance Directives Directive None Recorded Payers Insurance Date Sequence Insurance Name Policy Number Policy Chambers Covered Member ID Chambers Member ID Guarantor Name 01/04/[address] [place] [address] ([facility]) [id number] Antonette Kyle [id number] Antonette Kyle Notes Date Note Type Note Provider Name and Address Organization Details Recorded Time 01/04/2025 text/html ROS as noted in the HPI OSAworking toward weight loss, meds were not helpfulsleep on stomach 09/08/2022 [facility] and mixed 2 of 190 eventsCPAP trial - intolerant due to leak from masks and stomach sleeper position 5'8 230BMI 35 dentist did not advise MAD trialENT - Dr Dozier, hx of turbinate reduction, around 2021 also had a ablation inside noseprev dx of incompetent 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
== END 2025-09-21 11:21 | disposition home or self-care (01) ==
PROVIDERS: Visit Provider Physician Assistant Medical
DX: G47.19 Other hypersomnia (principal); R06.83 Snoring; G25.81 Restless legs syndrome
CPT/HCPCS: 99204